=== PATIENT | male | born 1950 | race Caucasian/White ===

== ENCOUNTER 2025-02-09 14:58 | Outpatient (CLI) | payer MEDICARE, SELFPAY ==
--- NOTE | ~2025-02-09 | XR_ITS ---
Left Hand Technique: PA, oblique, and lateral views were obtained. Clinical History: Pain Findings: There is probable subacute fracture of the proximal fifth metacarpal shaft with mild displa cement probable early callus formation. Joint spaces are preserved. Soft tissues are unremarkable. Impression: Fracture of the proximal fifth metacarpal shaft, as detailed above, likely subacute. Reviewed, dictated and finalized at location . Impression: Fracture of the proximal fifth metacarpal shaft, as detailed above, likely suba cute.
--- OUTSIDE RECORDS SUMMARY | 2025-02-09 15:11 | XMS_ITS | Data Portability ---
Author Organization [facility] Address [address] [place] [address] Care Team Providers Care Information Systems Analyst Name Role Phone AGGIE ROBERTO Primary Care Provider [phone] AGGIE MAZARIEGOS Neurologist RAMON RODRIGUEZ Urologist [phone] Assessment Encounter Date Assessment Date Assessment LastModified by Organization Details LastModified Time 12/19/2023 12/19/2023 Neurology he is seeing them before diabetes hypertension hyperlipidemia and GERD have been discussed. Old records. Continue current therapy. Follow-up 4 months. All questions answered. [email or web address] Not available 12/19/2023 21:03:44 04/15/2024 04/15/2024 chronic venous stasis changes legs we will have overweight healthy instructions given blood work ordered diagnosis discussed he will follow up with me in 4 months blood pressure is up today he says at home it is fine so he will monitor bring those numbers in refuses immunizations he gets diabetic eye exam Not available 04/15/2024 22:51:42 10/14/2024 10/14/2024 healthy lifestyl e care instructions Prevnar 20 Cologuard he needs diabetic foot exam also needs blood work for evaluation biochemically of disease processes and medications follow up 4 months [email or web address] Not available 10/18/2024 21:12:31 02/09/2025 02/09/2025 X-ray of the lef t wrist his diagnosis have been discussed in the medicines to treat him healthy lifestyle care instructions I will see him back in 4 months blood work has been ordered for biochemical management of disease processes and medications his blood pressure is evaluated today and he states that he is just irritated because he had to fill out a new patient paperwork again and he says that at home that it is doing fine and we have checked his machine before it and it does agree with our office findings he will continue to monitor 3 days a week at home and if it is above 140 on the systolic and 86 on the diastolic he knows to contact the office Not available 02/09/2025 14:37:19 Plan of Treatment Reminders Order Date Submit Date Provider Last Modified By Organization Details Last Modified Time Details Appointments ANY 15 2024 01:00P Janina Roberto MD Not available Not available Not available ANY 15 2024 09:15A Janina Roberto MD Not available Not available Not available Lab HbA1c (hemoglob in A1c), blood 2024 025 [email or web address] [facility], [address] [place] [address], [facility], [place], [address], 02/09/2025 16:09:46 lipid panel, serum 2024 025 [email or web address] [facility], [address] [place] [address], [facility], [place], [address], 02/09/2025 16:09:46 CMP, serum or plasma 2024 025 [email or web address] [facility], [address] [place] [address], [facility], [place], [address], 02/09/2025 16:09:46 CBC w/ auto diff 2024 025 [email or web address] [facility], [address] [place] [address], [facility], [place], [address], 02/09/2025 16:09:46 HbA1c (hemoglob in A1c), blood 2024 025 JOE [facility], [address] [facility], [facility], [place], [address], 10/15/2024 11:14:43 albumin/c reatinine , mass ratio, urine 2024 025 JOE [facility], [address] [facility], [address], [place], [address], 10/15/2024 11:14:39 noninvasi ve colorecta l cancer DNA + occult blood screening , QL, stool 2024 025 [facility] (Cologuard Orders Only), [address], [address], [place], [address], 12/08/2024 19:25:03 CMP, serum or plasma 2024 025 JOE [facility], [address] [facility], [address], [place], [address], 10/15/2024 11:14:42 CBC w/ auto diff 2024 025 JOE [facility], [address] [facility], [address], [place], [address], 10/15/2024 11:14:44 lipid panel, serum 2024 025 JOE [facility], [address] [facility], [address], [place], [address], 10/15/2024 11:14:41 PSA, total, serum or plasma 2023 024 JOE [facility], [address] [facility], [address], [place], [address], 04/16/2024 13:22:51 HbA1c (hemoglob in A1c), blood 2023 024 JOE [facility], [address], [address], [place], [address], 04/16/2024 13:22:50 lipid panel, serum 2023 024 JOE [facility], [address], [address], [place], [address], 04/16/2024 13:22:48 CMP, serum or plasma 2023 024 JOE [facility], [address] [facility], [facility], [place], [address], 04/16/2024 13:22:49 CBC w/ auto diff 2023 024 [facility], [address] [facility], [facility], [place], [address], 04/16/2024 13:22:50 HbA1c (hemoglob in A1c), blood 2023 024 [employer] [facility], [address], [place], [address], 01/13/2024 23:01:09 lipid panel, serum 2023 024 [employer] [facility], [address], [place], [address], 01/13/2024 23:01:07 CMP, serum or plasma 2023 024 [employer] [facility], [address], [place], [address], 01/13/2024 23:01:08 CBC w/ auto diff 2023 024 [employer] [facility], [address], [place], [address], 01/13/2024 23:01:09 Referral podiatris t referral 2024 025 JOE Torres DPM, [address] [facility], [address], [place], [address], 11/30/2024 10:23:26 Procedures None recorded. Surgeries None recorded. Imaging XR, hand [address] [facility], [address], [place], [address], 02/09/2025 16:09:46 Medication Orders None recorded. Patient TargetsNo targets recorded. Patient Instructions Encounter Date Encounter Id Patient Instructions Last Modified By Organization Details Last Modified Time 04/15/2024 [id number] A healthy lifestyle: care instructions [email or web address] Not available 04/15/2024 16:09:59 10/14/2024 [id number] A healthy lifestyle: care instructions [email or web address] Not available 10/14/2024 15:20:00 Medicare Wellnes s Preventive Checklist [email or web address] Not available 10/14/2024 15:20:00 02/09/2025 [id number] A healthy lifestyle: care instructions [email or web address] Not available 02/09/2025 16:09:46 Reason for Referral [employer] Technician Referral for Type 2 diabetes mellitus Referring Physician: Aggie Roberto, Internal Medicine, Encounter Date: 10/14/2024 Results Created Date Observation Date Name Description Value Unit Range Abnormal Flag Note LastModifiedBy Organization Detail LastModifiedTime 01/13/20 24 01/13/2024 LIPID PANEL , STAND JT cholesterol, total 141 mg/dL <200 normal Not Available [address], [address], 01/13/2024 23:01:07 01/13/20 24 01/13/2024 LIPID PANEL , STAND JT HDL cholesterol 69 mg/dL > or = 40 normal Not Available [address] [place], [address], 01/13/2024 23:01:07 01/13/20 24 01/13/2024 LIPID PANEL , STAND JT triglyceride s 76 mg/dL <150 normal Not Available [facility] [address] [address] [place], [address], 01/13/2024 23:01:07 01/13/20 24 01/13/2024 LIPID PANEL , STAND JT LDL-choleste rol 56 mg/dL _(maggie c) normal Refer ence range : <100 Fabi able range <100 mg/dL for prima ry preve ntion ; <70 mg/dL for patie nts with CHD or diabe tic patie nts with > or = 2 CHD risk facto rs. LDL-C is now calcu lated using the Lore n-Hop kins calcu titus n, which is a valid ated novel anahyo ismael clemente acy than the Fried donna equat ion in the estim ation of LDL-C . Lore duckworth SS et al. PETR. 2013; 310(1 9): 2061- 2068 (http ://ed ucati on.Pensqr. com/f aq/FA Q164) Not Available [facility] [address] [address], [place], [address], 01/13/2024 23:01:01/13/20 24 01/13/2024 LIPID PANEL , STAND JT chol/HDLC ratio 2.0 (calc ) <5.0 normal Not Available [facility] [address] [address], [place], [address], 01/13/2024 23:01:01/13/20 24 01/13/2024 LIPID PANEL , STAND JT non HDL cholesterol 72 mg/dL _(maggie c) <130 normal For patie nts with diabe oleg plus 1 major ASCVD risk facto r, treat ing to a non-H DL-C goal of <100 mg/dL (LDL- C of <70 mg/dL ) is consi dered a thera peuti c optio n. Not Available [facility] [address] [address] [address] , [place], [address], 01/13/2024 23:01:01/13/20 24 01/13/2024 COMPR EHENS CHAPIS METAB OLIC PANEL glucose 125 mg/dL 65-99 high Fasti ng refer ence inter chago For someo ne witho ut known diabe oleg, a gluco se value betwe en 100 and 125 mg/dL is consi stent with predi abete s and shoul d be confi rmed with a follo w-up test. Not Available [facility] [address] [address] [place], [address], 01/13/2024 23:01:08 01/13/20 24 01/13/2024 COMPR EHENS CHAPIS METAB OLIC PANEL urea nitrogen (BUN) 18 mg/dL 7-25 normal Not Available [address], [address], 01/13/2024 23:01:08 01/13/20 24 01/13/2024 COMPR EHENS CHAPIS METAB OLIC PANEL creatinine 0.88 mg/dL 0.70-1 .28 normal Not Available [address], [address], 01/13/2024 23:01:08 01/13/20 24 01/13/2024 COMPR EHENS CHAPIS METAB OLIC PANEL eGFR 91 mL/mi n/1.7 3m2 > or = 60 normal Not Available [address], [address], 01/13/2024 23:01:08 01/13/20 24 01/13/2024 COMPR EHENS CHAPIS METAB OLIC PANEL BUN/creatini ne ratio SEE NOTE: (calc ) 6-22 Not Repor darnell: BUN and Creat inine are withi n refer ence range . Not Available [address], [address], 01/13/2024 23:01:08 01/13/20 24 01/13/2024 COMPR EHENS CHAPIS METAB OLIC PANEL sodium 139 mmol/ L 135-14 6 normal Not Available [address], [address], 01/13/2024 23:01:08 01/13/20 24 01/13/2024 COMPR EHENS CHAPIS METAB OLIC PANEL potassium 4.7 mmol/ L 3.5-5. 3 normal Not Available [address], [address], 01/13/2024 23:01:08 01/13/20 24 01/13/2024 COMPR EHENS CHAPIS METAB OLIC PANEL chloride 103 mmol/ L 98-110 normal Not Available [address], [address], 01/13/2024 23:01:08 01/13/20 24 01/13/2024 COMPR EHENS CHAPIS METAB OLIC PANEL carbon dioxide 28 mmol/ L 20-32 normal Not Available [address], [address], 01/13/2024 23:01:08 01/13/20 24 01/13/2024 COMPR EHENS CHAPIS METAB OLIC PANEL calcium 9.6 mg/dL 8.6-10 .3 normal Not Available [address], [address], 01/13/2024 23:01:08 01/13/20 24 01/13/2024 COMPR EHENS CHAPIS METAB OLIC PANEL protein, total 7.0 g/dL 6.1-8. 1 normal Not Available [address], [address], 01/13/2024 23:01:08 01/13/20 24 01/13/2024 COMPR EHENS CHAPIS METAB OLIC PANEL albumin 4.3 g/dL 3.6-5. 1 normal Not Available [address], [address], 01/13/2024 23:01:08 01/13/20 24 01/13/2024 COMPR EHENS CHAPIS METAB OLIC PANEL globulin 2.7 g/dL_ (calc ) 1.9-3. 7 normal Not Available [address], [address], 01/13/2024 23:01:08 01/13/20 24 01/13/2024 COMPR EHENS CHAPIS METAB OLIC PANEL albumin/glob ulin ratio 1.6 (calc ) 1.0-2. 5 normal Not Available [address], [address], 01/13/2024 23:01:08 01/13/20 24 01/13/2024 COMPR EHENS CHAPIS METAB OLIC PANEL bilirubin, total 0.6 mg/dL 0.2-1. 2 normal Not Available [address], [address], 01/13/2024 23:01:08 01/13/20 24 01/13/2024 COMPR EHENS CHAPIS METAB OLIC PANEL alkaline phosphatase 49 U/L 35-144 normal Not Available [facility] [employer] [address], [address], 01/13/2024 23:01:08 01/13/20 24 01/13/2024 COMPR EHENS CHAPIS METAB OLIC PANEL AST 20 U/L 10-35 normal Not Available [address], [address], 01/13/2024 23:01:08 01/13/20 24 01/13/2024 COMPR EHENS CHAPIS METAB OLIC PANEL ALT 20 U/L 9-46 normal Not Available [address], [address], 01/13/2024 23:01:08 01/13/20 24 01/13/2024 CBC (INCL UDES DIFF/ PLT) white blood cell count 5.4 thous and/u L 3.8-10 .8 normal Not Available [address], [address], 01/13/2024 23:01:09 01/13/20 24 01/13/2024 CBC (INCL UDES DIFF/ PLT) red blood cell count 3.93 deb on/uL 4.20-5 .80 low Not Available [address], [address], 01/13/2024 23:01:09 01/13/20 24 01/13/2024 CBC (INCL UDES DIFF/ PLT) hemoglobin 12.7 g/dL 13.2-1 7.1 low Not Available [address], [address], 01/13/2024 23:01:01/13/20 24 01/13/2024 CBC (INCL UDES DIFF/ PLT) hematocrit 38.5 % 38.5-5 0.0 normal Not Available [address], [address], 01/13/2024 23:01:01/13/20 24 01/13/2024 CBC (INCL UDES DIFF/ PLT) MCV 98.0 fL 80.0-1 00.0 normal Not Available [address], [address], 01/13/2024 23:01:01/13/20 24 01/13/2024 CBC (INCL UDES DIFF/ PLT) MCH 32.3 pg 27.0-3 3.0 normal Not Available [address], [address], 01/13/2024 23:01:01/13/20 24 01/13/2024 CBC (INCL UDES DIFF/ PLT) MCHC 33.0 g/dL 32.0-3 6.0 normal Not Available [address], [address], 01/13/2024 23:01:01/13/20 24 01/13/2024 CBC (INCL UDES DIFF/ PLT) RDW 12.5 % 11.0-1 5.0 normal Not Available [address], [address], 01/13/2024 23:01:01/13/20 24 01/13/2024 CBC (INCL UDES DIFF/ PLT) platelet count 209 thous and/u L 140-40 0 normal Not Available [address] [place], [address], 01/13/2024 23:01:09 01/13/20 24 01/13/2024 CBC (INCL UDES DIFF/ PLT) MPV 11.1 fL 7.5-12 .5 normal Not Available [address], [address], 01/13/2024 23:01:01/13/20 24 01/13/2024 CBC (INCL UDES DIFF/ PLT) absolute neutrophils 3105 cells /uL 1500-7 800 normal Not Available [facility] [address], [address], 01/13/2024 23:01:01/13/20 24 01/13/2024 CBC (INCL UDES DIFF/ PLT) absolute lymphocytes 1501 cells /uL 850-39 00 normal Not Available [address], [address], 01/13/2024 23:01:01/13/20 24 01/13/2024 CBC (INCL UDES DIFF/ PLT) absolute monocytes 664 cells /uL 200-95 0 normal Not Available [address], [address], 01/13/2024 23:01:01/13/20 24 01/13/2024 CBC (INCL UDES DIFF/ PLT) absolute eosinophils 97 cells /uL 15-500 normal Not Available [address], [address], 01/13/2024 23:01:01/13/20 24 01/13/2024 CBC (INCL UDES DIFF/ PLT) absolute basophils 32 cells /uL 0-200 normal Not Available [address], [address], 01/13/2024 23:01:01/13/20 24 01/13/2024 CBC (INCL UDES DIFF/ PLT) neutrophils 57.5 % normal Not Available [facility] [address] [place], [address], 01/13/2024 23:01:09 01/13/20 24 01/13/2024 CBC (INCL UDES DIFF/ PLT) lymphocytes 27.8 % normal Not Available [facility] [address], [address], 01/13/2024 23:01:01/13/20 24 01/13/2024 CBC (INCL UDES DIFF/ PLT) monocytes 12.3 % normal Not Available [facility] [address], [address], 01/13/2024 23:01:01/13/20 24 01/13/2024 CBC (INCL UDES DIFF/ PLT) eosinophils 1.8 % normal Not Available [facility] [address], [address], 01/13/2024 23:01:09 01/13/20 24 01/13/2024 CBC (INCL UDES DIFF/ PLT) basophils 0.6 % normal Not Available [facility] [address], [address], 01/13/2024 23:01:09 01/13/20 24 01/13/2024 HEMOG LOBIN A1C hemoglobin A1C 7.0 %_of_ total _HGB <5.7 high For someo ne witho ut known diabe oleg, a hemog lobin A1c value of 6.5% or great er indic ates that they may have diabe oleg and this shoul d be confi rmed with a follo w-up test. For someo ne with known diabe oleg, a value <7% indic ates that their diabe oleg is well contr olled and a value great er than or equal to 7% indic ates subop timal contr ol. A1c targe ts shoul d be indiv idual ized based on durat ion of diabe oleg, age, comor bid condi tions , and other consi derat ions. Curre ntly, no conse nsus exist s camron sexton use of hemog lobin A1c for diagn osis of diabe oleg for child lee. This test was perfo rmed on the Marya lopez c503 platf orm. Effec tive , a buck ko in test platf orms from the [facility] to the Marya lopez c503 may have shift ed HbA1c resul ts coleman red to histo rical resul ts. Based on labor atory valid ation testi ng condu cted at [facility] , the Marya platf orm relat cahpis to the [facility] platf orm had an avera ge incre ase in HbA1c value of < or = 0.3%. This diffe rence is withi n accep darnell varia bilit y estab lishe d by the Natio nal [facility]co hemog lobin Stand ardiz ation Progr am. Note that not all indiv idual s will have had a shift in their resul ts and direc t coleman rison s betwe en histo rical and curre nt resul ts for testi ng condu cted on diffe rent platf orms is not recom mariaelena d. Not Available [facility] [address] [place], [address], 01/13/2024 23:01:09 04/15/20 24 04/16/2024 LIPID PANEL cholesterol, total 131 mg/dL 100-19 9 Not Available [facility] ([facility]) [address] [place], [address], 04/16/2024 13:22:48 04/15/20 24 04/16/2024 LIPID PANEL triglyceride s 180 mg/dL 0-149 above high normal Not Available [facility] ([facility]) [address] [place], [address], 04/16/2024 13:22:48 04/15/20 24 04/16/2024 LIPID PANEL HDL cholesterol 59 mg/dL >39 Not Available [facility] ([facility]) [address] [place], [address], 04/16/2024 13:22:48 04/15/20 24 04/16/2024 LIPID PANEL VLDL cholesterol maggie 29 mg/dL 5-40 Not Available [facility] ([facility]) [address] [facility], [place], [address], 04/16/2024 13:22:48 04/15/20 24 04/16/2024 LIPID PANEL LDL chol calc ([facility]) 43 mg/dL 0-99 Not Available [facility] ([facility]) [address] [facility], [place], [address], 04/16/2024 13:22:48 04/15/20 24 04/16/2024 COMP. METAB OLIC PANEL (14) glucose 106 mg/dL 70-99 above high normal Not Available [facility] ([facility]) [address] [place], [address], 04/16/2024 13:22:49 04/15/20 24 04/16/2024 COMP. METAB OLIC PANEL (14) BUN 14 mg/dL 8-27 Not Available [facility] ([facility]) [address] [place], [address], 04/16/2024 13:22:49 04/15/20 24 04/16/2024 COMP. METAB OLIC PANEL (14) creatinine 0.80 mg/dL 0.76-1 .27 Not Available [facility] ([facility]) [address] [place], [address], 04/16/2024 13:22:49 04/15/20 24 04/16/2024 COMP. METAB OLIC PANEL (14) eGFR 94 mL/mi n/1.7 3 >59 Not Available [facility] ([facility]) [address] [place], [address], 04/16/2024 13:22:49 04/15/20 24 04/16/2024 COMP. METAB OLIC PANEL (14) BUN/creatini ne ratio 18 10-24 Not Available [facility] ([facility]) [address] [facility] [place], [address], 04/16/2024 13:22:49 04/15/20 24 04/16/2024 COMP. METAB OLIC PANEL (14) sodium 140 mmol/ L 134-14 4 Not Available [facility] ([facility]) [address] [facility] [place], [address], 04/16/2024 13:22:49 04/15/20 24 04/16/2024 COMP. METAB OLIC PANEL (14) potassium 4.5 mmol/ L 3.5-5. 2 Not Available [facility] ([facility]) [address] [facility] [place], [address], 04/16/2024 13:22:49 04/15/20 24 04/16/2024 COMP. METAB OLIC PANEL (14) chloride 102 mmol/ L 96-106 Not Available [facility] ([facility]) [address] [facility] [place], [address], 04/16/2024 13:22:49 04/15/20 24 04/16/2024 COMP. METAB OLIC PANEL (14) carbon dioxide, total 25 mmol/ L 20-29 Not Available [facility] ([facility]) [address] [facility] [place], [address], 04/16/2024 13:22:49 04/15/20 24 04/16/2024 COMP. METAB OLIC PANEL (14) calcium 9.5 mg/dL 8.6-10 .2 Not Available [facility] ([facility]) [address] [facility] [place], [address], 04/16/2024 13:22:49 04/15/20 24 04/16/2024 COMP. METAB OLIC PANEL (14) protein, total 6.8 g/dL 6.0-8. 5 Not Available [facility] ([facility]) [address] [facility], [place], [address], 04/16/2024 13:22:49 04/15/20 24 04/16/2024 COMP. METAB OLIC PANEL (14) albumin 4.3 g/dL 3.8-4. 8 Not Available [facility] ([facility]) [address] [facility], [place], [address], 04/16/2024 13:22:49 04/15/20 24 04/16/2024 COMP. METAB OLIC PANEL (14) globulin, total 2.5 g/dL 1.5-4. 5 Not Available [facility] ([facility]) [address] [facility], [place], [address], 04/16/2024 13:22:49 04/15/20 24 04/16/2024 COMP. METAB OLIC PANEL (14) bilirubin, total 0.6 mg/dL 0.0-1. 2 Not Available [facility] ([facility]) [address] [facility], [place], [address], 04/16/2024 13:22:49 04/15/20 24 04/16/2024 COMP. METAB OLIC PANEL (14) alkaline phosphatase 56 IU/L 44-121 Not Available [facility] ([facility]) [address] [facility], [place], [address], 04/16/2024 13:22:49 04/15/20 24 04/16/2024 COMP. METAB OLIC PANEL (14) AST (SGOT) 22 IU/L 0-40 Not Available [facility] ([facility]) [address] [facility], [place], [address], 04/16/2024 13:22:49 04/15/20 24 04/16/2024 COMP. METAB OLIC PANEL (14) ALT (SGPT) 20 IU/L 0-44 Not Available [facility] ([facility]) [address] [facility], [place], [address], 04/16/2024 13:22:49 04/15/20 24 04/16/2024 HEMOG LOBIN A1C hemoglobin A1C 6.4 % 4.8-5. 6 above high normal Predi abete s: 5.7 - 6.4 Diabe oleg: >6.4 Glyce juarez contr ol for adult s with diabe oleg: <7.0 Not Available [facility] ([facility]) [address] [facility], [place], [address], 04/16/2024 13:22:50 04/15/20 24 04/16/2024 CBC WITH DIFFE RENTI AL/PL ATELE T WBC 6.3 x10e3 /uL 3.4-10 .8 Not Available [facility] ([facility]) [address] [place], [address], 04/16/2024 13:22:50 04/15/20 24 04/16/2024 CBC WITH DIFFE RENTI AL/PL ATELE T RBC 3.77 x10e6 /uL 4.14-5 .80 below low normal Not Available [facility] ([facility]) [address] [place], [address], 04/16/2024 13:22:50 04/15/20 24 04/16/2024 CBC WITH DIFFE RENTI AL/PL ATELE T hemoglobin 11.7 g/dL 13.0-1 7.7 below low normal Not Available [facility] ([facility]) [address] [place], [address], 04/16/2024 13:22:50 04/15/20 24 04/16/2024 CBC WITH DIFFE RENTI AL/PL ATELE T hematocrit 36.7 % 37.5-5 1.0 below low normal Not Available [facility] ([facility]) [address] [place], [address], 04/16/2024 13:22:50 04/15/20 24 04/16/2024 CBC WITH DIFFE RENTI AL/PL ATELE T MCV 97 fL 79-97 Not Available [facility] ([facility]) [address] [facility], [place], [address], 04/16/2024 13:22:50 04/15/20 24 04/16/2024 CBC WITH DIFFE RENTI AL/PL ATELE T MCH 31.0 pg 26.6-3 3.0 Not Available [facility] ([facility]) [address] [facility], [place], [address], 04/16/2024 13:22:50 04/15/20 24 04/16/2024 CBC WITH DIFFE RENTI AL/PL ATELE T MCHC 31.9 g/dL 31.5-3 5.7 Not Available [facility] ([facility]) [address] [facility], [place], [address], 04/16/2024 13:22:50 04/15/20 24 04/16/2024 CBC WITH DIFFE RENTI AL/PL ATELE T RDW 12.4 % 11.6-1 5.4 Not Available [facility] ([facility]) [address] [facility], [place], [address], 04/16/2024 13:22:50 04/15/20 24 04/16/2024 CBC WITH DIFFE RENTI AL/PL ATELE T platelets 202 x10e3 /uL 150-45 0 Not Available [facility] ([facility]) [address] [facility], [place], [address], 04/16/2024 13:22:50 04/15/20 24 04/16/2024 CBC WITH DIFFE RENTI AL/PL ATELE T neutrophils 56 % notest ab. Not Available [facility] ([facility]) [address] [facility], [place], [address], 04/16/2024 13:22:50 04/15/20 24 04/16/2024 CBC WITH DIFFE RENTI AL/PL ATELE T lymphs 28 % notest ab. Not Available [facility] ([facility]) [address] [facility], [place], [address], 04/16/2024 13:22:50 04/15/20 24 04/16/2024 CBC WITH DIFFE RENTI AL/PL ATELE T monocytes 13 % notest ab. Not Available [facility] ([facility]) [address] [facility], [place], [address], 04/16/2024 13:22:50 04/15/20 24 04/16/2024 CBC WITH DIFFE RENTI AL/PL ATELE T eos 2 % notest ab. Not Available [facility] ([facility]) [address] [facility], [place], [address], 04/16/2024 13:22:50 04/15/20 24 04/16/2024 CBC WITH DIFFE RENTI AL/PL ATELE T basos 1 % notest ab. Not Available [facility] ([facility]) [address] [facility], [place], [address], 04/16/2024 13:22:50 04/15/20 24 04/16/2024 CBC WITH DIFFE RENTI AL/PL ATELE T neutrophils (absolute) 3.5 x10e3 /uL 1.4-7. 0 Not Available [facility] ([facility]) [address] [facility], [place], [address], 04/16/2024 13:22:50 04/15/20 24 04/16/2024 CBC WITH DIFFE RENTI AL/PL ATELE T lymphs (absolute) 1.8 x10e3 /uL 0.7-3. 1 Not Available [facility] ([facility]) [address] [facility], [place], [address], 04/16/2024 13:22:50 04/15/20 24 04/16/2024 CBC WITH DIFFE RENTI AL/PL ATELE T monocytes(ab solute) 0.8 x10e3 /uL 0.1-0. 9 Not Available [facility] ([facility]) [address] [facility], [place], [address], 04/16/2024 13:22:50 04/15/20 24 04/16/2024 CBC WITH DIFFE RENTI AL/PL ATELE T eos (absolute) 0.1 x10e3 /uL 0.0-0. 4 Not Available [facility] ([facility]) [address] [place], [address], 04/16/2024 13:22:50 04/15/20 24 04/16/2024 CBC WITH DIFFE RENTI AL/PL ATELE T baso (absolute) 0.0 x10e3 /uL 0.0-0. 2 Not Available [facility] ([facility]) [address] [facility], [place], [address], 04/16/2024 13:22:50 04/15/20 24 04/16/2024 CBC WITH DIFFE RENTI AL/PL ATELE T immature granulocytes 0 % notest ab. Not Available [facility] ([facility]) [address] [facility], [place], [address], 04/16/2024 13:22:50 04/15/20 24 04/16/2024 CBC WITH DIFFE RENTI AL/PL ATELE T immature grans (abs) 0.0 x10e3 /uL 0.0-0. 1 Not Available [facility] ([facility]) [address] [place], [address], 04/16/2024 13:22:50 04/15/20 24 04/16/2024 PROST ATE-S PECIF IC AG prostate specific Ag 3.3 NG/mL 0.0-4. 0 Marya ECLIA metho dolog y. Accor ding to the Ameri can Urolo gical Assoc iatio n, Serum PSA shoul d decre ase and remai n at undet ectab le level s after radic al prost atect stephany. The AUA defin es bioch emica l recur rence as an initi al PSA value 0.2 ng/mL or great er follo wed by a subse quent confi rmato ry PSA value 0.2 ng/mL or great er. Value s obtai rigoberto with diffe rent assay metho ds or kits canno t be used inter jane eably . Resul ts canno t be inter prete d as absol [place] tribe evide nce of the prese nce or absen ce of fiona teran se. Not Available [facility] ([facility]) [address] [facility], [place], [address], 04/16/2024 13:22:51 10/14/19 25 10/15/2024 ALBUM IN/CR EATIN INE RATIO ,URIN E creatinine, urine 69.2 mg/dL notest ab. Not Available [facility] ([facility]) [address] [facility], [place], [address], 10/15/2024 11:14:39 10/14/19 25 10/15/2024 ALBUM IN/CR EATIN INE RATIO ,URIN E albumin, urine 3.4 ug/mL notest ab. Not Available [facility] ([facility]) [address] [facility], [place], [address], 10/15/2024 11:14:39 10/14/19 25 10/15/2024 ALBUM IN/CR EATIN INE RATIO ,URIN E alb/creat ratio 5 mg/g_ creat 0-29 Neha l: 0 - 29 Moder ately incre ased: 30 - 300 Sever otis incre ased: >300 Not Available [facility] ([facility]) [address] [facility], [place], [address], 10/15/2024 11:14:39 10/14/19 25 10/15/2024 LIPID PANEL cholesterol, total 157 mg/dL 100-19 9 Not Available [facility] ([facility]) [address] [facility], [place], [address], 10/15/2024 11:14:41 10/14/19 25 10/15/2024 LIPID PANEL triglyceride s 130 mg/dL 0-149 Not Available [facility] ([facility]) [address] [place], [address], 10/15/2024 11:14:41 10/14/19 25 10/15/2024 LIPID PANEL HDL cholesterol 62 mg/dL >39 Not Available [facility] ([facility]) [address] [place], [address], 10/15/2024 11:14:41 10/14/19 25 10/15/2024 LIPID PANEL VLDL cholesterol maggie 23 mg/dL 5-40 Not Available [facility] ([facility]) [address] [place], [address], 10/15/2024 11:14:41 10/14/19 25 10/15/2024 LIPID PANEL LDL chol calc ([facility]) 72 mg/dL 0-99 Not Available [facility] ([facility]) [address] [place], [address], 10/15/2024 11:14:41 10/14/19 25 10/15/2024 COMP. METAB OLIC PANEL (14) glucose 82 mg/dL 70-99 Not Available [facility] ([facility]) [address] [place], [address], 10/15/2024 11:14:42 10/14/19 25 10/15/2024 COMP. METAB OLIC PANEL (14) BUN 17 mg/dL 8-27 Not Available [facility] ([facility]) [address] [place], [address], 10/15/2024 11:14:42 10/14/19 25 10/15/2024 COMP. METAB OLIC PANEL (14) creatinine 0.87 mg/dL 0.76-1 .27 Not Available [facility] ([facility]) [address] [place], [address], 10/15/2024 11:14:42 10/14/19 25 10/15/2024 COMP. METAB OLIC PANEL (14) eGFR 91 mL/mi n/1.7 3 >59 Not Available [facility] ([facility]) [address] [facility], [place], [address], 10/15/2024 11:14:42 10/14/19 25 10/15/2024 COMP. METAB OLIC PANEL (14) BUN/creatini ne ratio 20 10-24 Not Available [facility] ([facility]) [address] [facility], [place], [address], 10/15/2024 11:14:42 10/14/19 25 10/15/2024 COMP. METAB OLIC PANEL (14) sodium 138 mmol/ L 134-14 4 Not Available [facility] ([facility]) [address] [facility], [place], [address], 10/15/2024 11:14:42 10/14/19 25 10/15/2024 COMP. METAB OLIC PANEL (14) potassium 4.8 mmol/ L 3.5-5. 2 Not Available [facility] ([facility]) [address] [facility], [place], [address], 10/15/2024 11:14:42 10/14/19 25 10/15/2024 COMP. METAB OLIC PANEL (14) chloride 100 mmol/ L 96-106 Not Available [facility] ([facility]) [address], [place], [address], 10/15/2024 11:14:42 10/14/19 25 10/15/2024 COMP. METAB OLIC PANEL (14) carbon dioxide, total 27 mmol/ L 20-29 Not Available [facility] ([facility]) [address] [facility], [place], [address], 10/15/2024 11:14:42 10/14/19 25 10/15/2024 COMP. METAB OLIC PANEL (14) calcium 9.7 mg/dL 8.6-10 .2 Not Available [facility] ([facility]) [address] [place], [address], 10/15/2024 11:14:42 10/14/19 25 10/15/2024 COMP. METAB OLIC PANEL (14) protein, total 7.0 g/dL 6.0-8. 5 Not Available [facility] ([facility]) [address] [place], [address], 10/15/2024 11:14:42 10/14/19 25 10/15/2024 COMP. METAB OLIC PANEL (14) albumin 4.4 g/dL 3.8-4. 8 Not Available [facility] ([facility]) [address] [place], [address], 10/15/2024 11:14:42 10/14/19 25 10/15/2024 COMP. METAB OLIC PANEL (14) globulin, total 2.6 g/dL 1.5-4. 5 Not Available [facility] ([facility]) [address] [place], [address], 10/15/2024 11:14:42 10/14/19 25 10/15/2024 COMP. METAB OLIC PANEL (14) bilirubin, total 0.7 mg/dL 0.0-1. 2 Not Available [facility] ([facility]) [address] [place], [address], 10/15/2024 11:14:42 10/14/19 25 10/15/2024 COMP. METAB OLIC PANEL (14) alkaline phosphatase 58 IU/L 44-121 Not Available [facility] ([facility]) [address] [place], [address], 10/15/2024 11:14:42 10/14/19 25 10/15/2024 COMP. METAB OLIC PANEL (14) AST (SGOT) 31 IU/L 0-40 Not Available [facility] ([facility]) [address] [place], [address], 10/15/2024 11:14:42 10/14/1910/15/2024 COMP. METAB OLIC PANEL (14) ALT (SGPT) 28 IU/L 0-44 Not Available [facility] ([facility]) [address], [place], [address], 10/15/2024 11:14:42 10/14/19 25 10/15/2024 HEMOG LOBIN A1C hemoglobin A1C 7.0 % 4.8-5. 6 above high normal Predi abete s: 5.7 - 6.4 Diabe oleg: >6.4 Glyce juarez contr ol for adult s with diabe oleg: <7.0 Not Available [facility] ([facility]) [address] [place], [address], 10/15/2024 11:14:43 10/14/19 25 10/15/2024 CBC WITH DIFFE RENTI AL/PL ATELE T WBC 8.1 x10e3 /uL 3.4-10 .8 Not Available [facility] ([facility]) [address] [place], [address], 10/15/2024 11:14:44 10/14/19 25 10/15/2024 CBC WITH DIFFE RENTI AL/PL ATELE T RBC 3.80 x10e6 /uL 4.14-5 .80 below low normal Not Available [facility] ([facility]) [address] [place], [address], 10/15/2024 11:14:44 10/14/19 25 10/15/2024 CBC WITH DIFFE RENTI AL/PL ATELE T hemoglobin 12.2 g/dL 13.0-1 7.7 below low normal Not Available [facility] ([facility]) [address] [place], [address], 10/15/2024 11:14:44 10/14/19 25 10/15/2024 CBC WITH DIFFE RENTI AL/PL ATELE T hematocrit 37.8 % 37.5-5 1.0 Not Available [facility] ([facility]) [address], [place], [address], 10/15/2024 11:14:44 10/14/19 25 10/15/2024 CBC WITH DIFFE RENTI AL/PL ATELE T MCV 100 fL 79-97 above high normal Not Available [facility] ([facility]) [address] [facility], [place], [address], 10/15/2024 11:14:44 10/14/19 25 10/15/2024 CBC WITH DIFFE RENTI AL/PL ATELE T MCH 32.1 pg 26.6-3 3.0 Not Available [facility] ([facility]) [address] [facility], [place], [address], 10/15/2024 11:14:44 10/14/19 25 10/15/2024 CBC WITH DIFFE RENTI AL/PL ATELE T MCHC 32.3 g/dL 31.5-3 5.7 Not Available [facility] ([facility]) [address] [facility], [place], [address], 10/15/2024 11:14:44 10/14/19 25 10/15/2024 CBC WITH DIFFE RENTI AL/PL ATELE T RDW 12.2 % 11.6-1 5.4 Not Available [facility] ([facility]) [address] [facility], [place], [address], 10/15/2024 11:14:44 10/14/19 25 10/15/2024 CBC WITH DIFFE RENTI AL/PL ATELE T platelets 187 x10e3 /uL 150-45 0 Not Available [facility] ([facility]) [address] [place], [address], 10/15/2024 11:14:44 10/14/19 25 10/15/2024 CBC WITH DIFFE RENTI AL/PL ATELE T neutrophils 55 % notest ab. Not Available [facility] ([facility]) [address] [facility], [place], [address], 10/15/2024 11:14:44 10/14/19 25 10/15/2024 CBC WITH DIFFE RENTI AL/PL ATELE T lymphs 30 % notest ab. Not Available [facility] ([facility]) [address] [facility], [place], [address], 10/15/2024 11:14:44 10/14/19 25 10/15/2024 CBC WITH DIFFE RENTI AL/PL ATELE T monocytes 12 % notest ab. Not Available [facility] ([facility]) [address], [place], [address], 10/15/2024 11:14:44 10/14/19 25 10/15/2024 CBC WITH DIFFE RENTI AL/PL ATELE T eos 2 % notest ab. Not Available [facility] ([facility]) [address] [facility], [place], [address], 10/15/2024 11:14:44 10/14/19 25 10/15/2024 CBC WITH DIFFE RENTI AL/PL ATELE T basos 1 % notest ab. Not Available [facility] ([facility]) [address], [place], [address], 10/15/2024 11:14:44 10/14/19 25 10/15/2024 CBC WITH DIFFE RENTI AL/PL ATELE T neutrophils (absolute) 4.4 x10e3 /uL 1.4-7. 0 Not Available [facility] ([facility]) [address] [facility], [place], [address], 10/15/2024 11:14:44 10/14/19 25 10/15/2024 CBC WITH DIFFE RENTI AL/PL ATELE T lymphs (absolute) 2.4 x10e3 /uL 0.7-3. 1 Not Available [facility] ([facility]) [address] [place], [address], 10/15/2024 11:14:44 10/14/19 25 10/15/2024 CBC WITH DIFFE RENTI AL/PL ATELE T monocytes(ab solute) 1.0 x10e3 /uL 0.1-0. 9 above high normal Not Available [facility] ([facility]) [address] [facility], [place], [address], 10/15/2024 11:14:44 10/14/19 25 10/15/2024 CBC WITH DIFFE RENTI AL/PL ATELE T eos (absolute) 0.2 x10e3 /uL 0.0-0. 4 Not Available [facility] ([facility]) [address] [facility], [place], [address], 10/15/2024 11:14:44 10/14/19 25 10/15/2024 CBC WITH DIFFE RENTI AL/PL ATELE T baso (absolute) 0.1 x10e3 /uL 0.0-0. 2 Not Available [facility] ([facility]) [address] [place], [address], 10/15/2024 11:14:44 10/14/19 25 10/15/2024 CBC WITH DIFFE RENTI AL/PL ATELE T immature granulocytes 0 % notest ab. Not Available [facility] ([facility]) [address] [place], [address], 10/15/2024 11:14:44 10/14/19 25 10/15/2024 CBC WITH DIFFE RENTI AL/PL ATELE T immature grans (abs) 0.0 x10e3 /uL 0.0-0. 1 Not Available [facility] ([facility]) [address] [place], [address], 10/15/2024 11:14:44 12/02/19 25 12/02/2024 COLOG UARD cologuard result reportable NEGATI VE negati ve normal NEGAT CHAPIS TEST RESUL T. A negat chapis Colog uard resul t indic ates a low likel ihood that a color ectal cance r (CRC) or advan martha adeno ma (mary omato us polyp s with more advan martha pre-m align ant featu res) is prese nt. The chanc e that a perso n with a negat chapis Colog uard test has a color ectal cance r is less than 1 in 1500 (nega tive predi ctive value >99.9 %) or has an advan martha adeno ma is less than 5.3% (nega tive predi ctive value 94.7% ). These data are based on a prosp ectiv e cross -sect ional study of ,00 0 indiv idual s at vulcan ge risk for color ectal cance r who were scree rigoberto with both Colog uard and colon oscop y. (Samra Colmenares et al, N Engl J Med 2014; 370(1 4):12 86-12 97) The neha l value (refe rence range ) for this assay is negat chapis. COLOG UARD RE-SC REENI NG RECOM MENDA TION: Perio dic color ectal cance r scree aditya is an impor tant part of preve ntive healt hcare for asymp tomat ic indiv idual s at vulcan ge risk for color ectal cance r. Follo wing a negat chapis Colog uard resul t, the Ameri can Cance r Socie ty and U.S. Multi -Soci ety Task Force scree aditya guide lines recom mend a Colog uard re-sc reeni ng inter chago of 3 years . Refer ences : Ameri can Cance r Socie ty Guide line for Color ectal Cance r Scree aditya: https ://theodore w.can cer.o rg/ca ncer/ colon -rect al-ca ncer/ detec tion- diagn osis- stagi ng/ac s-rec ommen datio ns.ht ml.; Jose Elias DK, Mariangel d CR, Veronica venegas JK, Color ectal Cance r Scree aditya: Recom menda tions for Physi cians and Patie nts from the U.S. Multi -Soci ety Task Force on Color ectal Cance r Scree aditya Inderjitog y 2017; 112:1 016-1 030. TEST DESCR IPTIO N: [place] site algor ithmi c lien sis of stool DNA-b iojuan diego kers with hemog lobin immun oassa y. Quant itati ve value s of indiv idual bioma rkers are not repor table and are not assoc iated with [facility] idual bioma rker resul t refer ence range s. Colog uard is inten ded for color ectal cance r scree aditya of adult s of eithe r sex, 45 years or older , who are at [facility] for color ectal cance r (CRC) . Colog uard has been appro dmitriy for use by the U.S. FDA. The perfo rmanc e of Colog uard was estab lishe d in a cross secti onal study of [facility] adult s aged 50-84 . Colog uard perfo rmanc e in patie nts ages 45 to 49 years was estim ated by sub-g roup lien sis of near- age group s. Colon oscop ies perfo rmed for a posit chapis resul t may find as the most clini brady signi ficlincoln t lesio n: color ectal cance r [4.0% ], advan martha adeno ma (incl uding sessi le oj darnell polyp s great er than or equal to 1cm diame ter) [20%] or non- advan martha adeno ma [31%] ; or no color ectal neopl gracie [45%] . These estim ates are deriv ed from a prosp ectiv e cross -sect ional scree aditya study of 10,00 0 indiv idual s at [facility] risk for color ectal cance r who were scree rigoberto with both Colog uard and colon oscop y. (Impe riale T. et al, N Engl J Med 2014; 370(1 4):12 86-12 97.) Colog uard may produ ce a false negat chapis or false posit chapis resul t (no color ectal cance r or preca ncero us polyp prese nt at colon oscop y follo w up). A negat chapis Colog uard test resul t does not guara ntee the absen ce of CRC or advan martha adeno ma (pre- cance r). The curre nt Colog uard scree aditya inter chago is every 3 years . (Amer ican Cance r Socie ty and U.S. Multi -Soci ety Task Force ). Colog uard perfo rmanc e data in a 10,00 0 patie nt pivot al study using colon oscop y as the refer ence metho d can be acces sed at the follo wing locat ion: www.e xactl abs.c om/re sulneal . Addit ional descr iptio n of the Colog uard test proce ss, warni ngs and preca ution s can be found at www.c ologu jt.c om. Not Available [facility] (Cologuard Orders Only) [address], [place], [address], 12/08/2024 19:25:03 04/15/20 24 10/25/2016 colon oscop y proce dure (PROC ) No observ ation record ed. BARCODE Not Available 2023 11:49:17 Result Notes None recorded. Problems Name Problem SNOMED Code Status Onset Date Resolution Date Notes Provider Name and Address Organization Details Recorded Time Type 2 diabetes mellitus 87032555 Active 2023 Aggie Roberto MD Attn: Carl kowalski,[address] [facility], [place], [address], [facility] 4 21:03:44 Essential hypertension 90864769 Active 2023 Aggie Roberto MD Attn: Carl kowalski,[address] [facility], [place], [address], [facility] 4 21:03:46 Hyperlipidemia 06160457 Active 2023 Aggie Roberto MD Attn: Carl kowalski,[address] [facility], [place], [address], [facility] 4 21:03:50 Stasis dermatitis of lower limb due to chronic peripheral venous hypertension 188178815 Active 2023 Aggie Roberto MD Attn: Carl kowalski,[address] [facility], [place], [address], [facility] 4 21:03:51 Gastroesophage al reflux disease without esophagitis 691175814 Active 2023 Aggie Roberto MD Attn: Carl kowalski,[address] [facility], [place], [address], [facility] 4 21:03:53 Anxiety 86287788 Active 2023 Aggie Roberto MD Attn: Carl kowalski,[address] [facility], [place], [address], [facility] 4 21:03:55 Problem Notes None recorded. Procedures Surgical History None recorded. Imaging Results Imaging Date Name Status LastModified by [facility] Details LastModified Time 10/25/2016 colonoscopy procedure (PROC) completed BARCODE Information not available 04/15/2024 11:49:17 Procedure Notes None recorded. Medical Equipment None Reported. Allergies No known drug allergies Medications Name Sig Start Date Stop Date Status Note LastModified by Organization Details LastModified Time metformin 500 mg tablet TAKE 1 TABLET BY MOUTH TWICE DAILY 2024 active Not Available Not Available Not Avai lable bupropion HCl SR 150 mg tablet,12 hr sustained-r elease TAKE 1 TABLET BY MOUTH DAILY 2023 active Not Available Not Available Not Avai lable citalopram 20 mg tablet TAKE 1 TABLET BY MOUTH DAILY 2023 active Not Available Not Available Not Avai lable pantoprazol e 40 mg tablet,veronika yed release TAKE 1 TABLET BY MOUTH DAILY 2024 active Not Available Not Available Not Avai lable lisinopril 10 mg tablet TAKE 1 TABLET BY MOUTH DAILY 2024 active Not Available Not Available Not Avai lable montelukast 10 mg tablet TAKE 1 TABLET BY MOUTH DAILY 2024 active Not Available Not Available Not Avai lable rosuvastati n 10 mg tablet TAKE 1 TABLET BY MOUTH DAILY active Not Available Not Available No t Available alfuzosin ER 10 mg tablet,exte nded release 24 hr TAKE 1 TABLET BY MOUTH EVERY NIGHT AT BEDTIME active Not Available Not Available No t Available Centrum active Not Available Not Avail able Not Available Ozempic 1 mg/dose (4 mg/3 mL) subcutaneou s pen injector INJECT 1 MG EVERY WEEK BY SUBCUTANE OUS ROUTE. 10/14 completed Not Available Not Available Not Available Ozempic 2 mg/dose (8 mg/3 mL) subcutaneou s pen injector inject 2mg weekly 10/14 completed Not Available Not Available Not Available Ozempic 0.25 mg or 0.5 mg (2 mg/3 mL) subcutaneou s pen injector INJECT SUBCUTANE OUS 0.25MG ONCE A WEEK FOR 4 WEEKS 10/14 completed Not Available Not Available Not Available Vitals Date Recorded Body weight Body mass index (BMI) Body height Heart rate Oxygen saturation Oxygen saturation in Arterial blood by Pulse oximetry Body temperature Respiratory rate Systolic blood pressure Diastolic blood pressure Provider Name and Address Organization Details Last Updated DateTime 4 68465.6 5 g 26.9 kg/m2 182.88 cm 76 /min 96 % 96 % 98.3 [degF] 18 /min 160 mm[Hg] 84 mm[Hg] Tabitha Ball MA [place] - [facility] 4 14:33:27 Date Recorded Body height Body mass index (BMI) Body weight Heart rate Oxygen saturation Oxygen saturation in Arterial blood by Pulse oximetry Systolic blood pressure Diastolic blood pressure Systolic blood pressure Diastolic blood pressure Provider Name and Address Organization Details Last Updated DateTime 4 182.88 cm 27.5 kg/m2 02906.5 3 g 78 /min 98 % 98 % 150 mm[Hg] 62 mm[Hg] 150 mm[Hg] 80 mm[Hg] Esperanza Fu MA [place] - [facility] 4 14:11:37 Date Recorded Body height Body mass index (BMI) Body weight Heart rate Oxygen saturation Oxygen saturation in Arterial blood by Pulse oximetry Systolic blood pressure Diastolic blood pressure Provider Name and Address Organization Details Last Updated DateTime 182.88 cm 28.1 kg/m2 51570.4 2 g 89 /min 95 % 95 % 130 mm[Hg] 70 mm[Hg] Jessica Rosado MA [facility] 14:06:06 Date Recorded Pain severity - 0-10 verbal numeric rating [Score] - Reported Provider Name and Address Organization Details Last Updated DateTime 10/14/2024 2 Lizette Sera [facility] 10/14/2024 14:12:00 Date Recorded Body height Body mass index (BMI) Body weight Heart rate Oxygen saturation Oxygen saturation in Arterial blood by Pulse oximetry Systolic blood pressure Diastolic blood pressure Provider Name and Address Organization Details Last Updated DateTime 182.88 cm 26.9 kg/m2 11812.2 9 g 82 /min 97 % 97 % 160 mm[Hg] 82 mm[Hg] Jessicadeborah Rosado [facility] 14:06:32 Social History Question Answer Notes LastModified by Status Work Ltdat ion Details LastModified Time Tobacco Smoking Status Former Smoker quit 15 years ago Lizette Sera [facility] 10/14/2024 14:14:21 Do You Have An Advance Directive? Yes Information not available 10/14/2024 What Is Your Level Of Alcohol Consumption? Occasional Beer Information not available 10/14/2024 Are You Blind Or Do You Have Difficulty Seeing? No Information not available 12/19/2023 What Is Your Level Of Caffeine Consumption? Moderate Couple Cups Of Coffee Daily Information not available 10/14/2024 In The 14 Days Before Symptom Onset, Have You Had Close Contact With A Laboratory-confir med COVID-19 While That Case Was Ill? No Information not available 10/14/2024 In The 14 Days Before Symptom Onset, Have You Had Close Contact With A Person Who Is Under Investigation For COVID-19 While That Person Was Ill? No Information not available 10/14/2024 Have You Been To An Area Known To Be High Risk For COVID-19? No Information not available 10/14/2024 Are You Currently Employed? No Retired Information not available 10/14/2024 Are You Deaf Or Do You Have Serious Difficulty Hearing? Yes Has Hearing Aid - Doesn't Always Wear Information not available 10/14/2024 What Type Of Diet Are You Following? REGULAR Information not available 12/19/2023 In The Past 7 Days, How Many Days Did You Exercise? 0 Information not available 10/14/2024 In The Past 7 Days, How Much Pain Have You [place]? Some Information not available 10/14/2024 In General, Would You Say You Health Is: Very Good Information not available 10/14/2024 How Would You Describe The Condition Of Your Mouth And Teeth- Including False Teeth Or Dentures? Very Good Information not available 10/14/2024 Each Night, How Many Hours Of Sleep Do You Get? 6 Information no t available 10/14/2024 Has Anyone Ever Told You That You Snore? Yes Information not available 10/14/2024 In The Past 7 Days, How Often Have You [place] Sleepy In The Daytime? Rarely Information not available 10/14/2024 # Alcohol Drinks Per Week 0 Information not available 10/14/2024 What Was The Date Of Your Most Recent Tobacco Screening? 02/09/2025 Information not available 02/09/2025 What Is Your Relationship Status? Information not available 12/19/2023 Do You Use Your Seat Belt Or Car Seat Routinely? Yes Information not available 10/14/2024 Do You Have Smoke And Carbon Monoxide Detectors In Your Home? Yes Information not available 12/19/2023 Do You Feel Stressed (tense, Restless, Nervous, Or Anxious, Or Unable To Sleep At Night)? [id number] Information not available 10/14/2024 Do You Use Any Illicit Or Recreational Drugs? No Information not available 12/19/2023 Do You Use Sunscreen Routinely? No Information not available 10/14/2024 Has Tobacco Cessation Counseling Been Provided? No Information not available 10/14/2024 Do You Or Have You Ever Used Any Other Forms Of Tobacco Or Nicotine? No Information not available 10/14/2024 Sex: Male Functional Status Question Answer Note LastModified by Organizat ion Details LastModified Time Are you able to care for yourself? Yes Information not available 12/19/2023 What is your exercise level? Occasional active Information not available 10/14/2024 Mental Status None recorded. Family History Relationship Description Onset Age of this Age Resolved Age Notes LastModified by Organization Details LastModified Time Sister Atherosclero sis [email or web address] Not available 2023 14:35:26 Sister Disorder of thyroid gland hdoverma Not available 2023 14:35:53 Unspecified Relation Diabetes mellitus hdoverma Not available 2023 14:35:38 Mother Disorder of thyroid gland hdoverma Not available 2023 14:35:49 Mother Dementia hdoverma Not available 12/19/2023 14:36:46 Medical History Condition Response Coronary Artery Disease N Other N Atrial Fibrillation N High Blood Pressure Y Depression N COPD N Blood Clots N Anxiety Disorder Y Muscle, Joint, or Bone Problems N Acid Reflux (GERD) N Cancer N Stroke N Headaches N Kidney or Bladder Problems N Have you had a mammogram in the last yea r? N Skin Problems N Asthma N Allergies N Have you had a PSA blood test in the las t year? Y Hepatitis N High Cholesterol Y Liver Disease N Thyroid Problems N GI Problems Y Anemia N Heart Attack (HI) N Diabetes Y Seizures/Epilepsy N Have you had a colonoscopy in the last 1 0 years? Y Heart Failure N Osteoporosis N Immunizations Vaccine Type Date Status Note Provider Nam e and Address Organization Details Recorded Time Influenza, high-dose, quadrivalent, PF 3 completed JANIE [place], [place] - [facility] 12/19/2023 14:21:35 COVID-19, mRNA, LNP-S, PF, 30 mcg/0.3 mL dose 2 completed [place] [facility] 12/19/2023 14:21:35 COVID-19, mRNA, LNP-S, PF, 30 mcg/0.3 mL dose 1 completed [place] [facility] 12/19/2023 14:21:35 COVID-19, mRNA, LNP-S, PF, 30 mcg/0.3 mL dose 1 [place] [facility] 12/19/2023 14:21:35 COVID-19, mRNA, LNP-S, PF, lee-sucrose, 30 mcg/0.3 mL 3 completed [place] [facility] 12/19/2023 14:21:35 Td (adult), 5 Lf tetanus toxoid, preservative free, adsorbed 3 completed [place] [facility] 12/19/2023 14:21:35 influenza, unspecified formulation 4 completed JANIE [place] [facility] 02/09/2025 09:43:21 COVID-19, mRNA, LNP-S, PF, 30 mcg/0.3 mL dose 4 completed J[place] [facility] 02/09/2025 09:43:21 RSV, recombinant, protein subunit RSVpreF, adjuvant reconstituted, 0.5 mL, PF 4 completed JAN[place] [facility] 02/09/2025 09:43:21 COVID-19, mRNA, LNP-S, PF, lee-sucrose, 30 mcg/0.3 mL 4 completed J[place] [facility] 02/09/2025 09:43:21 Influenza, high-dose, trivalent, PF 4 completed JAN[place] [facility] 02/09/2025 09:43:21 Pneumococcal conjugate PCV20, polysaccharide QVH053 conjugate, adjuvant, PF 5 completed Aggie Roberto MD Attn: [address] [place], [address], [place] [facility] 10/18/2024 21:08:33 Past Encounters Encounter ID Performer Location Encounter Start Date Encounter Closed Date Diagnosis/Indication Diagnosis SNOMED-CT Code Diagnosis ICD10 Code Diagnosis Note [id number] Aggie Roberto MD [facility] (Adult Med) [address] [place] [phone] 12/19/2023 14:11:42 12/19/2023 15:50:00 Type 2 diabetes mellitus 61302489 E11.9 Essential hypertension 47348911 I10 Hyperlipidemia 55464735 E78.5 Stasis mahi matitis of lower limb due to chronic peripheral venous hypertension 677688580 I87.399 Gastroesop hageal reflux disease without esophagitis 342776526 K21.9 Anxiety 09440316 F41.9 [id number] MD [facility] (Adult Med) [address] [place] [phone] 04/15/2024 13:46:57 04/15/2024 14:33:15 Overweight 986681226 E66.3 Type 2 zandra betes mellitus 70929516 E11.9 Essential hypertension 97041061 I10 Hyperlipidemia 34465431 E78.5 Screening for malignant neoplasm of prostate 521918421 Z12.5 Gastroesop hageal reflux disease without esophagitis 899137311 K21.9 Stasis mahi matitis of lower limb due to chronic peripheral venous hypertension 737819558 I87.399 Anxiety 46284765 F41.9 [id number] MD [facility] (Adult Med) [address] [place] [phone] 0 10/14/2024 13:48:38 10/14/2024 14:56:36 Body mass index 25-29 - overweight 089540702 Z68.28 Overweight 957723249 E66 .3 Adult [facility] examination 842353435 Z00.00 Health Risk Assessment collected and reviewed Essential hypertension 09141975 I10 Type 2 zandra betes mellitus 86672648 E11.9 Screening for malignant neoplasm of colon 426051736 Z12.11 Administra tion of pneumococcal vaccine 28300562 Z23 Anxiety 26782852 F41.9 Gastroesop hageal reflux disease without esophagitis 800039405 K21.9 Hyperlipidemia 06424962 E78.5 Stasis mahi matitis of lower limb due to chronic peripheral venous hypertension 509930797 I87.639 [id number] MD [facility] (Adult Med) [address] [place] [phone] 0 02/09/2025 13:53:03 02/09/2025 14:45:11 Overweight in adulthood with body mass index of 25 or more but less than 30 473848136 Z68.26 Overweight 920029613 E66 .3 Essential hypertension 51315814 I10 Pain of left hand 010878 0947 73017 M79.642 Type 2 zandra betes mellitus 50526449 E11.9 Hyperlipidemia 87071935 E78.5 Anxiety 21036773 F41.9 Gastroesop hageal reflux disease without esophagitis 886577035 K21.9 Stasis mahi matitis of lower limb due to chronic peripheral venous hypertension 182686006 I87.399 Health Concerns Section Related Observation LastModified by Organization Detai ls LastModified Time None Recorded Concern Status LastModified by Organization Details LastModified Time None Recorded Advance Directives Directive Y: Payers Encounter Date Sequence Insurance Name Policy Number Policy Dunham Covered Member ID Dunham Member ID Guarantor Name 12/19/2023 1 [facility] (MEDICARE REPLACEMENT/A DVANTAGE - HMO) [id number] Surendra Mitchell [id number] [facility] 04/15/2024 1 [facility] (MEDICARE REPLACEMENT/A DVANTAGE - HMO) [id number] Surendra Mitchell [id number] Surendra Stephen 10/14/2024 1 [facility] (MEDICARE REPLACEMENT/A DVANTAGE - HMO) [id number] Surendra Mitchell [id number] Surendra Gaonamons 02/09/2025 1 [facility] (MEDICARE REPLACEMENT/A DVANTAGE - HMO) [id number] Surendra Stephen [id number] Surendra Stephen Notes Date Note Type Note Provider Name and Address Organization Details Recorded Time 12/19/2023 text/html Anxiety high no SI or HI. Hypertension pressure is up a little bit no chest pain or shortness of breath. Dyslipidemia doing pretty good on red meat. States his edema legs better GERD no problems at this time is in today is noticed that he is got a little bit more involuntary movements about the lips may be a little bit more forgetful Aggie Roberto MD Attn: [employer] [place], [address], [place] [facility] 12/19/2023 21:04:35 04/15/2024 text/html diabetes no polyphagia polydipsia needs A1c. Hypertension no headache or dizziness. Hyperlipidemia diet has been good with regard to his saturated fat. GERD no esophagitis type symptoms. Stasis dermatitis he needs to wear the compression socks a little bit more it is hard for him to do in the summertime. Overweight healthy lifestyle instructions will be given Aggie Roberto MD Attn: [address] [facility], [place], [address], [facility] - [facility] 04/15/2024 22:51:59 10/14/2024 text/html MAW 2Reported bypatient.Diet and Nutrition:healthy diet Fracture Risk:no sudden unexplained fractures;history of fractures Concentration and Memory:no decreased concentrating ability; no memory lapses or loss; does not forget words Speech/Motor difficulties:no speech difficulties; no difficulty expressing formulated concepts; no difficulty with fine manipulative tasks; no difficulty writing/copying; no slowed reaction time; does not knock things over when trying to pick them up Hearing:loss of hearing: in both ears; wears hearing aids (at times) Vision:worse both distance and near(glasses) Activities of Daily Living:able to bathe with limited or no assistance; able to contol urination and bowels; able to dress with limited or no assistance; able to feed self with limited or no assistance; able to get out of chair or bed with limited or no assistance; able to groom with limited or no assistance; able to toilet with limited or no assistance Instrumental Activities of Daily Living:able to do house work with limited or no assistance; able to grocery shop with limited or no assistance; able to manage medications with limited or no assistance; able to manage money with limited or no assistance; able to prepare meals with limited or no assistance; able to use the phone with limited or no assistance Falls Risk Assessment:no frequent falls while walking; no fall in the past year; no fall since last visit; no dizziness/vertigo Home Safety:reviewed sun protection; no unsafe jada hazzards; no unsafe stairs; working smoke/CO detectors; practicing 'safer sex'; has hand bars in the bathroom/shower; good lighting in the home hypertension no headache or dizziness. Anxiety has been controlled. GERD no nausea vomiting heartburn. Hyperlipidemia trying to follow up on low-fat diet and watch his saturated fat. Stasis dermatitis of the limbs lower limbs needs to wear his venous compression stockings. Diabetes need blood work but no polyphagia no polydipsia Aggie Roberto MD Attn: [employer] , [place], [address], [facility] 10/18/2024 21:13:18 02/09/2025 text/html diabetes no polyphagia polydipsia needs A1c. Hypertension no headache or dizziness. Hyperlipidemia diet has been good with regard to his saturated fat. GERD no esophagitis type symptoms. Stasis dermatitis he needs to wear the compression socks a little bit more it is hard for him to do in the summertime. Overweight healthy lifestyle instructions will be given fell the other day on an outstretched hand he has got pain on the lateral aspect of his left hand no numbness tingling no loss of function just pain making a fist and does not wake him up at night has not really tried to take anything for it [id number] pain Aggie Roberto MD Attn: [employer]ing[address] , [place], [address], [facility] 02/09/2025 14:37:38
--- OUTSIDE RECORDS SUMMARY | 2025-02-09 15:11 | XMS_ITS | Data Portability ---
Author Organization [place] [facility], Main Office Address [address] [place] [address] Assessment Encounter Date Assessment Date Assessment LastModified by Organization Details LastModified Time 02/01/2023 02/01/2023 He was not seen for dyslipidemia diabetes or other problems today those will be for his next appointment he will get that blood work done as far as the ecchymosis goes it just looks like a bruise he must have bumped his arm on something according to him it is already improving I told him to monitor it should be gone in 2-3 weeks if not he can call me back [email or web address] Not available 02/01/2023 11:16:30 05/13/2023 05/13/2023 Diabetes is uncontrolled there is no history of thyroid cancer personally or family dunham and nothing to suggest multiple endocrine neoplasia type 2 syndrome will try to get him approved for Ozempic he is agreeable side effects discussed other medical problems have been discussed as well I will see him back 4 weeks after starting the Ozempic if he cannot get the Ozempic approved will see him back in 4 months standard we do not get Ozempic approved we will need either insulin or another strategy Not available 05/14/2023 20:46:38 06/24/2023 06/24/2023 Continue current therapy he has been doing well ozempic no side effects working fine see me back in 4 months [email or web address] Not available 06/25/2023 07:38:23 09/23/2023 09/23/2023 Continue current therapy will monitor the chest wall pain again is markedly better his other medical problems appear to be doing fine his blood work been reviewed no side effects from medication follow-up 4 months. Great reduction in A1c [email or web address] Not available 09/23/2023 22:01:09 Plan of Treatment Reminders Order Date Submit Date Provider Last Modified By Organization Details Last Modified Time Details Appointments Follow Up 15 2024 11:30A M Santy Torres DPM Not available Not available Not available Lab CMP, serum or plasma 2022 023 [employer] [facility], [address], [place], [address], 05/13/2023 11:49:50 lipid panel, serum [address] [facility], [address], [place], [address], 05/10/2023 11:37:16 HbA1c (hemoglob in A1c), blood 2022 023 [facility], [address], [place], [address], 05/13/2023 11:49:50 CBC w/ auto diff 2022 023 [facility], [address], [place], [address], 05/13/2023 11:49:50 Referral None recorded. Procedures None recorded. Surgeries None recorded. Imaging None recorded. Medication Orders Ozempic 0.25 mg or 0.5 mg (2 mg/3 mL) subcutane ous pen injector 2022 023 [id number], [address] , [place], [place], [id number], 05/13/2023 13:19:10 Patient TargetsNo targets recorded. Patient InstructionsNo instructions recorded. Reason for Referral None Reported. Results Created Date Observation Date Name Description Value Unit Range Abnormal Flag Note LastModifiedBy Organization Detail LastModifiedTime Result Notes None recorded. Problems Name Problem SNOMED Code Status Onset Date Resolution Date Notes Provider Name and Address Organization Details Recorded Time Disorder of lower limb 548248236 Active Not Available [facility] 01:14:50 Benign essential hypertens ion 2995559 Active Not Available [facility] 3 01:14:50 Lesion of skin of face 61651967056 6 Active 2017 Not Available [facility] 3 01:14:50 Abdominal pain 78116967 Completed Not Available [facility] 3 01:14:50 Gastroeso phageal reflux disease 749495663 Active Not Available [facility] 3 01:14:50 Eruption 136320205 Completed Not Available [facility] 3 01:14:50 Type 2 diabetes mellitus without complicat ion 595173117 Active Not Available [facility] 3 01:14:50 Dyslipide johnson 351311141 Active 2020 Not Available [facility] 3 01:14:51 Anxiety 21821739 Active 2018 Not Available [facility] 3 01:14:51 Rhinitis 02866069 Active 2017 Not Available [facility] 3 01:14:51 Venous stasis 44102098 Active Not Available [facility] 3 01:14:51 Pain in limb 91541065 Active Not Available [facility] 3 01:14:51 Ecchymosi s 748594755 Active 2022 Yash Roberto MD [address] [place] [address], [address] , [facility] [employer] [facility] [employer] [facility] 3 11:15:54 Open wound of left foot 65896600376 662195 Active 2022 Ekta Smith MA null, [employer] [facility] [employer] [facility] [employer] 3 11:23:18 Puncture wound of foot 27427886 Active 2022 JANIE Tijerina, [employer] [facility] [employer] [facility] 3 11:24:00 Benign prostatic hyperplas ia with outflow obstructi on 236458661 Active 2022 JANIE Mc, [employer] [facility] 3 14:35:52 Problem Notes None recorded. Procedures Surgical History Date Name Laterality Status Provider Name and Address Organization Details Recorded Time 11/10/19 25 Nail Debridement completed Paulo Chamberlain DPM [address], [address], [place], [address], [facility] [employer] [facility] 11/23/2024 09:58:59 10/25/19 17 Colonoscopy completed Not Available [facility] 12/06/19 23 00:59:49 Imaging Results None recorded. Procedure Notes None recorded. Medical Equipment None Reported. Allergies No known drug allergies Medications Name Sig Start Date Stop Date Status Note LastModified by Organization Details LastModified Time cyclobenz aprine 10 mg tablet 02/11 completed Not Available Not Available Not Available metformin 500 mg tablet TAKE 1 TABLET BY MOUTH TWICE DAILY 2022 active Not Available Not Available Not Avai lable bupropion HCl SR 150 mg tablet,12 hr sustained -release TAKE 1 TABLET BY MOUTH DAILY active Not Available Not Available No t Available clindamyc in HCl 300 mg capsule TAKE 1 CAPSULE BY MOUTH THREE TIMES A DAY FOR 7 DAYS active Not Available Not Available No t Available ammonium lactate 12 % lotion aplly to affected area daily as needed 09/05 completed Not Available Not Available Not Available azithromy nisa 250 mg tablet TK 2 TS PO ON DAY 1, THEN TK 1 T PO D FOR 4 DAYS 04/13 completed Not Available Not Available Not Available hydrocodo ne 5 mg-acetam inophen 325 mg tablet 03/22 completed Not Available Not Available Not Available clobetaso l 0.05 % topical cream APPLY TWICE DAILY TO RASH FOR 2-4 WEEKS THEN TAKE A BREAK NEEDED active Not Available Not Available No t Available Tamiflu 75 mg capsule 06/19 completed Not Available Not Available Not Available tramadol 50 mg tablet 02/11 completed Not Available Not Available Not Available sildenafi l 100 mg tablet Take 1 tablet every 24 hours by oral route. active 1/2 - 1 tab prn 60 min prior to sex on empty stomach Not Available Not Available Not Available triamcino lone acetonide 0.1 % topical cream apply to hands qhs active Not Available Not Available No t Available meloxicam 7.5 mg tablet 03/22 completed Not Available Not Available Not Available citalopra m 20 mg tablet TAKE 1 TABLET BY MOUTH DAILY active Not Available Not Available No t Available cephalexi n 500 mg capsule Take 1 capsule 3 times a day by oral route for 10 days. 08/19 completed Not Available Not Available Not Available pantopraz ole 40 mg tablet,de layed release TAKE 1 TABLET BY MOUTH DAILY 2023 active Not Available Not Available Not Avai lable lisinopri l 10 mg tablet TAKE 1 TABLET BY MOUTH DAILY 2023 active Not Available Not Available Not Avai lable monteluka st 10 mg tablet TAKE 1 TABLET BY MOUTH DAILY 2023 active Not Available Not Available Not Avai lable clobetaso l 0.05 % topical ointment 09/05 completed Not Available Not Available Not Available levofloxa nisa 500 mg tablet 06/19 completed Not Available Not Available Not Available levofloxa nisa 750 mg tablet 06/19 completed Not Available Not Available Not Available methylpre dnisolone 4 mg tablets in a dose pack TAKE DIRECTED ON PACKAGE FOR 6 DAYS 05/07 completed Not Available Not Available Not Available ondansetr on 4 mg disintegr ating tablet 03/22 completed Not Available Not Available Not Available fluticaso ne propionat e 50 mcg/actua tion nasal spray,[employer] [place] 2 sprays every day by intranas al route. active Not Available Not Available No t Available sertralin e 50 mg tablet TAKE ONE TABLET DAILY 12/07 completed Not Available Not Available Not Available naproxen 500 mg tablet TAKE ONE TABLET TWICE DAILY WITH FOOD OR MILK 09/02 completed Not Available Not Available Not Available amoxicill in 875 mg-potass ium clavulana te 125 mg tablet 06/19 completed Not Available Not Available Not Available rosuvasta tin 10 mg tablet TAKE 1 TABLET BY MOUTH DAILY active Not Available Not Available No t Available alfuzosin ER 10 mg tablet,ex tended release 24 hr TAKE 1 TABLET BY MOUTH AT BEDTIME active Not Available Not Available No t Available Spiriva with [employer] r 18 mcg and inhalatio n capsules Inhale 1 capsule every day by inhalati on route. active Not Available Not Available No t Available loratadin e 09/02 completed Not Available Not Available Not Available Centrum Silver 2020 active Not Available Not Available Not Avai lable cephalexi n 750 mg capsule TAKE 1 CAPSULE BY MOUTH THREE TIMES DAILY FOR 7 DAYS 09/05 completed Not Available Not Available Not Available ProAir HFA 90 mcg/actua tion aerosol inhaler 02/11 completed Not Available Not Available Not Available Contour Next Test Strips 09/02 completed Not Available Not Available Not Available Tudorza Pressair 400 mcg/actua tion breath activated INHALE 1 PUFF EVERY 12 HOURS 09/02 completed Not Available Not Available Not Available Ozempic 1 mg/dose (4 mg/3 mL) subcutane ous pen injector INJECT 1 MG EVERY WEEK BY SUBCUTAN EOUS ROUTE. active Not Available Not Available No t Available Ozempic 0.25 mg or 0.5 mg (2 mg/3 mL) subcutane ous pen injector INJECT SUBCUTAN EOUS 0.25MG ONCE A WEEK FOR 4 WEEKS active Not Available Not Available No t Available Vitals Date Recorded Body height Body mass index (BMI) Body weight Heart rate Oxygen saturation Oxygen saturation in Arterial blood by Pulse oximetry Body temperature Systolic blood pressure Diastolic blood pressure Provider Name and Address Organization Details Last Updated DateTime 3 180.34 cm 29.5 kg/m2 15434.4 3 g 73 /min 98 % 98 % 97.1 [degF] 146 mm[Hg] 88 mm[Hg] Ekta Smith MA [employer] [facility] 3 10:54:33 Date Recorded Body height Body temperature Heart rate Oxygen saturation Oxygen saturation in Arterial blood by Pulse oximetry Body mass index (BMI) Body weight Systolic blood pressure Diastolic blood pressure Provider Name and Address Organization Details Last Updated DateTime 3 180.34 cm 98.1 [degF] 68 /min 98 % 98 % 29 kg/m2 92283.2 1 g 132 mm[Hg] 86 mm[Hg] Ekta Smith MA [employer] [facility] 3 11:21:56 Date Recorded Body height Body mass index (BMI) Body weight Body temperature Heart rate Systolic blood pressure Diastolic blood pressure Provider Name and Address Organization Details Last Updated DateTime 3 180.34 cm 27.9 kg/m2 20120.4 7 g 97.2 [degF] 67 /min 136 mm[Hg] 86 mm[Hg] CHIN Garner [employer] [facility] [employer] [facility] 3 11:20:34 Date Recorded Body height Body mass index (BMI) Body weight Body temperature Heart rate Oxygen saturation Oxygen saturation in Arterial blood by Pulse oximetry Systolic blood pressure Diastolic blood pressure Provider Name and Address Organization Details Last Updated DateTime 3 180.34 cm 28.2 kg/m2 35617.6 6 g 97.9 [degF] 80 /min 96 % 96 % 152 mm[Hg] 70 mm[Hg] Fidelia zapien [facility] [employer] [facility] 3 12:09:45 Date Recorded Body weight Oxygen saturation Oxygen saturation in Arterial blood by Pulse oximetry Body temperature Heart rate Provider Name and Address Organization Details Last Updated DateTime 5 40175.0 7 g 98 % 98 % 98.4 [degF] 84 /min Arian Charlie, [facility] [employer] [facility] 5 15:09:27 Social History Question Answer Notes LastModified by Organizat ion Details LastModified Time Tobacco Smoking Status Former Smoker quit 2011 Not Available [facility] 12/05/2022 00:58:41 Do You Have An Advance Directive? No MIGRATION.58314 07558 Information not available 12/05/2022 What Is Your Level Of Alcohol Consumption? Occasional MIGRATION.97961 30375 Information not available 12/05/2022 Are You Blind Or Do You Have Difficulty Seeing? No MIGRATION.29236 56493 Information not available 12/05/2022 What Is Your Level Of Caffeine Consumption? Moderate MIGRATION.97858 81253 Information not available 12/05/2022 How Much Tobacco Do You Chew? None MIGRATION.11896 43407 Information not available 12/05/2022 In The 14 Days Before Symptom Onset, Have You Had Close Contact With A Laboratory-confi rmed COVID-19 While That Case Was Ill? No MIGRATION.65992 49901 Information not available 12/05/2022 In The 14 Days Before Symptom Onset, Have You Had Close Contact With A Person Who Is Under Investigation For COVID-19 While That Person Was Ill? No MIGRATION.91667 05850 Information not available 12/05/2022 Are You Deaf Or Do You Have Serious Difficulty Hearing? No MIGRATION.14538 65691 Information not available 12/05/2022 What Type Of Diet Are You Following? REGULAR MIGRATION.89003 80266 Information not available 12/05/2022 Which Illicit Or Recreational Drugs Have You Used? None MIGRATION.43665 72734 Information not available 12/05/2022 Do You Or Have You Ever Used E-cigarettes Or Vape? Never Used Electronic Cigarettes MIGRATION.45976 77040 Information not available 12/05/2022 What Is The Highest Grade Or Level Of School You Have Completed Or The Highest Degree You Have Received? [id number] MIGRATION.88032 61871 Information not available 12/05/2022 What Is Your Occupation? Retired MIGRATION.13085 69973 Information not available 12/05/2022 Have There Been Any Changes To Your Family Or Social Situation? No MIGRATION.86445 25132 Information not available 12/05/2022 What Is The Fluoride Status Of Your Home? Unknown MIGRATION.62454 44723 Information not available 12/05/2022 When Did You Quit Smoking? 6-10yearssincelast cigarette MIGRATION.80498 22670 Information not available 12/05/2022 Are There Any Guns Present In Your Home? No MIGRATION.53979 84000 Information not available 12/05/2022 Do You Use Insect Repellent Routinely? No MIGRATION.25876 48160 Information not available 12/05/2022 Where Do You Live? [facility] MIGRATION.17769 93437 Information not available 12/05/2022 Do You Have A Medical Power Of Box Sealing Machine Catcher? Yes MIGRATION.59131 42750 Information not available 12/05/2022 What Was The Date Of Your Most Recent Tobacco Screening? 11/10/2024 [email or web address] Information not available 11/10/2024 Have You Ever Been Counseled For Unhealthy Alcohol Use? No MIGRATION.77280 86031 Information not available 12/05/2022 Do You Have Any Pets? Yes MIGRATION.32809 02431 Information not available 12/05/2022 What Is Your Relationship Status? MIGRATION.68290 16838 Information not available 12/05/2022 Do You Use Your Seat Belt Or Car Seat Routinely? Yes MIGRATION.03001 42061 Information not available 12/05/2022 Do You Have Smoke And Carbon Monoxide Detectors In Your Home? Yes MIGRATION.29492 80503 Information not available 12/05/2022 Are You Passively Exposed To Smoke? No MIGRATION.36069 40543 Information not available 12/05/2022 Do You Or Have You Ever Used Smokeless Tobacco? Never Used Smokeless Tobacco MIGRATION.35881 50443 Information not available 12/05/2022 Are There Any Smokers In Your House? No MIGRATION.41959 00620 Information not available 12/05/2022 How Much Tobacco Do You Smoke? No MIGRATION.86527 08540 Information not available 12/05/2022 What Types Of Sporting Activities Do You Participate In? None MIGRATION.21475 96102 Information not available 12/05/2022 Do You Feel Stressed (tense, Restless, Nervous, Or Anxious, Or Unable To Sleep At Night)? [id number] MIGRATION.31973 88233 Information not available 12/05/2022 Do You Use Any Illicit Or Recreational Drugs? No MIGRATION.16905 34157 Information not available 12/05/2022 Do You Use Sunscreen Routinely? Yes MIGRATION.15191 63462 Information not available 12/05/2022 Has Tobacco Cessation Counseling Been Provided? No MIGRATION.06355 68487 Information not available 12/05/2022 Have You Recently Traveled Abroad? No MIGRATION.29428 09305 Information not available 12/05/2022 Do You Have Any Dietary Restrictions? No MIGRATION.86807 15464 Information not available 12/05/2022 Do You Or Have You Ever Used Any Other Forms Of Tobacco Or Nicotine? No MIGRATION.44542 23313 Information not available 12/05/2022 Sex: Male Functional Status Question Answer Note LastModified by Organizat ion Details LastModified Time Do you have difficulty walking or climbing stairs? No MIGRATION.3041541 026 Information not available 12/05/2022 Do you have transportation difficulties? No MIGRATION.6441753 026 Information not available 12/05/2022 Are you able to walk? YESWOREST MIGRATION.1284425 026 Information not available 12/05/2022 Do you have difficulty doing errands alone? No MIGRATION.4364986 026 Information not available 12/05/2022 Are you able to care for yourself? Yes MIGRATION.3722129 026 Information not available 12/05/2022 Do you have difficulty dressing or bathing? No MIGRATION.9439408 026 Information not available 12/05/2022 What is your exercise level? Moderate MIGRATION.2197442 026 Information not available 12/05/2022 Mental Status Question Answer Note LastModified by Organizat ion Details LastModified Time Do you have difficulty concentrating, remembering or making decisions? No MIGRATION.145806527 6 Information not available 12/05/2022 Family History Relationship Description Onset Age of this Age Resolved Age Notes LastModified by Organization Details LastModified Time Sister Diabetes mellitus MIGRATION.017 [id number] Not available 12/05/2022 01:00:00 Sister Hypertensive disorder MIGRATION.128 2406162 Not available 12/05/2022 01:00:00 Brother Disease of liver MIGRATION.599 7266461 Not available 12/05/2022 01:00:00 Father Diabetes mellitus MIGRATION.642 4645043 Not available 12/05/2022 01:00:00 Father Heart disease MIGRATION.956 5759781 Not available 12/05/2022 01:00:00 Father Hypertensive disorder MIGRATION.313 8829810 Not available 12/05/2022 01:00:00 Father Carcinoma of prostate MIGRATION.188 4807908 Not available 12/05/2022 01:00:00 Mother Hypertensive disorder MIGRATION.844 [id number] Not available 12/05/2022 01:00:00 Medical History Condition Response NERVE DISEASE Y BLINDNESS N RHEUMATIC FEVER N KIDNEY STONES N BLADDER PROBLEMS N MRSA N OTHER # 1 Y POLIO N LUNG DISEASE/DISORDER N COPD N RADIATION / CHEMOTHERAPY N Other # 2 N BLOOD DISEASES N EAR OR HEARING PROBLEMS N MUMPS N DEPRESSION (INCLUDING POST ) N BOWEL PROBLEMS N STROKE/TIA N ULCERS N BENIGN PROSTATIC HYPERPLASIA N MEASLES N MYOCARDIAL INFARCTION N OBESITY N GERD/NAUSEA Y ANEURYSM N URINARY/BLADDER/KIDNEY PROBLEMS N CORONARY ARTERY DISEASE (CAD) N ADDICTION CONCERNS N Impotence N ENDOMETRIOSIS N USE OF BLOOD THINNERS N SKIN PROBLEMS N GASTROINTESTINAL DISORDER N PERIPHERAL VASCULAR DISEASE Y MUSCLE,JOINT OR BONE PROBLEMS N GASTROINTESTINAL BLEEDING N BLOOD CLOTS Y ASTHMA N CATARACTS N ERECTILE DYSFUNCTION N VARICOSITIES N GI PROBLEMS N Low Testosterone N INFERTILITY N AIDS/HIV N CHEMOTHERAPY / RADIATION N LIVER DISEASE N MALE HYPOGONADISM N HYPERTENSION Y Deficiency N TOURETTE'S N ANXIETY DISORDER Y BLOOD TRANSFUSION N ANEMIA/BLOOD DISORDER N CHRONIC EAR INFECTIONS N BRONCHITIS N TUBERCULOSIS N GLAUCOMA N FOOT PROBLEM N DIVERTICULITIS Y SLEEP APNEA N CHICKENPOX N INFECTIOUS DISEASE N PROSTATE N HEART ARRHYTHMIA N INSOMNIA N HIGH CHOLESTEROL / HYPERLIPIDEMIA Y HYPERTHYROIDISM N EYE PROBLEMS N EDEMA N CHRONIC PAIN SYNDROME N HYPOTHYROIDISM N CONSTIPATION N CAROTID BLOCKAGE Y BACK / NECK PROBLEMS N HAVE YOU BEEN HOSPITALIZED OR SEEN IN [facility] ER IN THE PAST YEAR ? N ATHEROSCLEROSIS N BREAST PROBLEMS N DIALYSIS N ECZEMA N OSTEOPOROSIS Y ARTHRITIS Y APPENDICITIS N DIABETES, TYPE Y BAD TEETH N ENT N HEARTBURN / REFLUX N AUTISM SPECTRUM DISORDER (ASD) N HEPATITIS / LIVER DISEASE N GOUT N SLEEP DISORDER Y ALZHEIMER'S DISEASE N Brain Problems N HERPES N DEMENTIA N SEIZURES/EPILEPSY N HEADACHES/MIGRAINES N VASCULAR DISEASE Y PACEMAKER N Blood Disorder N DIZZINESS N KIDNEY DISEASE N HEART DISEASE/HEART PROBLEMS N MULTIPLE SCLEROSIS N CARDIAC ARRHYTHMIA N CANCER: SPECIFY N Gall Stones N ATRIAL FIBRILLATION N PULMONARY EMBOLISM N AUTOIMMUNE DISEASE N Immunizations Vaccine Type Date Status Note Provider Nam e and Address Organization Details Recorded Time Td (adult), 5 Lf tetanus toxoid, preservative free, adsorbed 3 completed Loraine Chaparro RN [facility], [place] [facility] 05/10/2023 14:02:00 Past Encounters Encounter ID Performer Location Encounter Start Date Encounter Closed Date Diagnosis/Indication Diagnosis SNOMED-CT Code Diagnosis ICD10 Code Diagnosis Note [id number] Yash Roberto MD [facility] [address] [address] 12/07/2020 00:00:00 12/15/2020 20:44:46 [id number] Yash Roberto MD [facility] [address] [address] 05/26/2021 00:00:00 05/27/2021 16:52:27 [id number] Aneesh Chaudhari MD [facility] [address] [address] 09/05/2021 00:00:00 09/05/2021 15:52:39 [id number] Yash Roberto MD [facility] [address] [address] 09/22/2021 00:00:00 09/23/2021 18:52:56 [id number] MD LIBRADO [place] [address] [address] 12/12/2021 00:00:00 12/12/2021 14:58:19 [id number] Yash Roberto MD [facility] Internal Med [facility] [address] [address] 04/13/2022 00:00:00 04/13/2022 16:54:29 [id number] Aneesh Chaudhari MD [facility] [address] [place], [place] [address] [place] [address] 06/12/2022 00:00:00 06/12/2022 14:31:51 [id number] Yash Roberto MD [facility] Internal Med [facility] [address] [facility] [address] [address] 10/15/2022 00:00:00 10/15/2022 15:02:18 [id number] Yash Roberto MD [facility] Internal Med [facility] [address] [facility] [address] [address] 02/01/2023 10:45:49 02/01/2023 11:11:29 Dyslipidemia 112276469 E78.5 Type 2 zandra betes mellitus without complication 110096878 E11.9 Benign ess ential hypertension 3611421 I10 Ecchymosis 619420398 R58 [id number] Yash Roberto MD [facility] Internal Med [facility] [address] [address] 05/13/2023 11:10:14 05/13/2023 11:55:04 Type 2 diabetes mellitus without complication 994405055 E11.9 Anxiety 58183090 F41.9 Dyslipidemia 652772236 E 78.5 Benign ess ential hypertension 0658152 I10 Gastroesop hageal reflux disease 431031125 K21.9 [id number] Yash Roberto MD [facility] Internal Med [facility] [address] [address] 06/24/2023 11:13:14 06/24/2023 12:24:04 Dyslipidemia 667582237 E78.5 Anxiety 07207679 F41.9 Benign ess ential hypertension 6873820 I10 Gastroesop hageal reflux disease 832382761 K21.9 Venous stasis 71849184 I 87.8 [id number] Yash Roberto MD [facility] [address] [facility], [address] [place] [address] 09/23/2023 11:40:42 09/23/2023 12:33:07 Dyslipidemia 152252296 E78.5 Anxiety 10725008 F41.9 Benign ess ential hypertension 8336572 I10 Benign pro static hyperplasia with outflow obstruction 622193252 N40.1 Type 2 zandra betes mellitus without complication 616020715 E11.9 [id number] Paulo Chamberlain DPM [facility] [place] [address] [facility] [place] [address] 11/10/2024 14:54:03 11/24/2024 04:07:48 Health Concerns Section Related Observation LastModified by Organization Detai ls LastModified Time None Recorded Concern Status LastModified by Organization Details LastModified Time None Recorded Advance Directives Directive N: Payers Encounter Date Sequence Insurance Name Policy Number Policy Dunham Covered Member ID Dunham Member ID Guarantor Name 02/01/2023 1 [facility] (MEDICARE REPLACEMENT/A DVANTAGE - HMO) [id number] Surendra Mitchell [id number] Surendra Mitchell 05/13/2023 1 [facility] (MEDICARE REPLACEMENT/A DVANTAGE - HMO) [id number] Surendra Mitchell [id number] Surendra Mitchell 06/24/2023 1 [facility] (MEDICARE REPLACEMENT/A DVANTAGE - HMO) [id number] Surendra Mitchell [id number] Surendra Mitchell 09/23/2023 1 [facility] (MEDICARE REPLACEMENT/A DVANTAGE - HMO) [id number] Surendra Mitchell [id number] Surendra Mitchell 11/10/2024 1 [facility] (MEDICARE REPLACEMENT/A DVANTAGE - HMO) [id number] Surendra Mitchell [id number] Surendra Mitchell Notes Date Note Type Note Provider Name and Address Organization Details Recorded Time 02/01/2023 text/html has a skin lesio n he wants me to see Yash Roberto MD [address] [facility], [address], [place], [address], [facility] [employer] [facility] 02/01/2023 11:17:01 05/13/2023 text/html hypertension no headache no dizziness. Anxiety stable on his current medical regimen without side effects no SI or HI. Dyslipidemia initially his diet is pretty good he watches saturated fat. venous insufficiency legs no evidence of cellulitis or dermatitis. GERD no nausea no vomiting Yash Roberto MD [address] [address], [place], [address], [facility] [employer] [facility] 05/14/2023 20:46:57 06/24/2023 text/html hypertension no headache no dizziness. Anxiety stable on his current medical regimen without side effects no SI or HI. Dyslipidemia initially his diet is pretty good he watches saturated fat. venous insufficiency legs no evidence of cellulitis or dermatitis. GERD no nausea no vomiting Yash Roberto MD [address] [address], [place], [address], [facility] [employer] [facility] 06/25/2023 07:38:39 09/23/2023 text/html hypertension no headache no dizziness. Anxiety stable on his current medical regimen without side effects no SI or HI. Dyslipidemia initially his diet is pretty good he watches saturated fat. venous insufficiency legs no evidence of cellulitis or dermatitis. GERD no nausea no vomiting he fell the other day and slid down on his chest did not hit head no neck pain little bit of pain in his left upper chest afterwards without any chest pain or anything like that took some Advil much better Yash Roberto MD [address] [address], [place], [address], [facility] [employer] [facility] 09/23/2023 22:01:50 11/10/2024 text/html Pt RTC for routi ne c/o thick painful ingrown, dystrophic nails jamarcus. Paulo Chamberlain, CHANELLE [address] [address], [place], [address], [facility] [employer] [facility] 11/23/2024 09:59:04
--- OUTSIDE RECORDS SUMMARY | 2025-02-09 15:11 | XMS_ITS | Referral Summary ---
Author Organization [facility] Address [facility] [place] [address] Care Team Providers Care Customer Resolution Specialist Name Role Phone Yash Roberto MD Primary Care Provider Allergies No known active allergies Medications multivit-min/FA /lycopen/lutein (CENTRUM SILVER MEN ORAL) Centrum Silver Activ e buPROPion SR (WELLBUTRIN SR) 150 mg 12 hr tablet 1 Active citalopram (CeleXA) 20 mg tablet 1 Active clobetasoL (TEMOVATE) 0.05 % ointment 1 Active lisinopriL (PRINIVIL,ZESTR IL) 10 mg tablet 1 Active metFORMIN (GLUCOPHAGE) 500 mg tablet metformin 500 mg tablet TAKE 1 TABLET BY MOUTH TWICE DAILY Active montelukast (SINGULAIR) 10 mg tablet [address] (PROTONIX) 40 mg EC tablet 1 Active tiotropium (Spiriva with HandiHaler) 18 mcg per inhalation capsule Spiriva with HandiHaler 18 mcg and inhalation capsules Active rosuvastatin (CRESTOR) 10 mg tablet 1 Active Active Problems Problem Noted Date Diagnosed Date Memory impairment 04/12/2021 Assessment & Plan (05/26/2021 3:42 PM CDT): Patient's cognitive decline is historically most consistent with mild cognitive impairment. MRI and laboratory assessment to date is normal. Observation from the neurological standpoint is appropriate at this time. It was discussed with patient and his that he is at increased risk of subsequent development of dementia and if progressive cognitive loss would persist a trial of donepezil could be recommended. He will follow-up in neurology clinic on an as-needed basis. Assessment & Plan (04/12/2021 11:04 AM CDT): Patient has both report a 2 year history of progressive cognitive decline. Mild cognitive deficits are documented on objective examination. I will obtain an MRI brain in addition to laboratory assessment to include TSH, T4, B12, treponemal antibody survey. I will see him back thereafter. Tardive dyskinesia 04/12/2021 Assessment & Plan (05/26/2021 3:42 PM CDT): He reports that his dyskinesia have eased. From his historical description it sounds more like simple motor tic than chorea at this time. Observation from the neurological standpoint would be appropriate. Assessment & Plan (04/12/2021 11:02 AM CDT): Patient has a 6 month history of dyskinesia in both hands. He has no history of neuroleptic treatment in past. One possibility would be Windsor's disease particularly in concert with cognitive decline. I will obtain a Windsor's DNA screening and see him back thereafter. Social History Tobacco Use Types Packs/Day Years Used Date Smoking Tobacco: Former Smokeless Tobacco: Never Tobacco Cessation:Counseling Given: Not Answered Personal Safety Answer Date Recorded Getting School Help Needed Not on file 12/07 Sex and Gender Information Value Date Recorded Sex Assigned at Not on file Legal Sex Male 1:21 PM CDT Gender Identity Not on file Sexual Orientation Not on file Last Filed Vital Signs Vital Sign Reading Time Taken Comments Blood Pressure 183/70 07/30/2024 10:12 AM CDT Pulse 77 07/30/2024 10:12 AM CDT Temperature 36.5 C (97.7 F) 05/26/2021 3:02 PM CDT Respiratory Rate 18 07/30/2024 10:12 AM CDT Oxygen Saturation 97% 07/30/2024 10:12 AM CDT Inhaled Oxygen Concentration - - Weight 92.4 kg (203 lb 9.6 oz) 07/30/2024 10:12 AM CDT Height 182.9 cm (6') 07/30/2024 10:12 AM CDT Body Mass Index 27.61 07/30/2024 10:12 AM CDT Plan of Treatment Not on file Insurance DR GALLEGOS [address] MEDICARE ADVANTAGE Care Teams Customer Resolution Specialist Relationship Specialty Start Date End Date Yash Roberto MD PCP - General Internal Medicine 02/01/21
--- OUTSIDE RECORDS SUMMARY | 2025-02-09 15:11 | XMS_ITS | CONTINUITY OF CARE DOCUMENT ---
Author Name dalton hoffman Address Unknown Organization [facility] Address [address] [place] [address] [address] [place] [address] Phone [phone] Care Team Providers Care Race Steward Name Role Phone AGGIE PURCELL MD Unavailable [phone] AGGIE PURCELL MD Unavailable [phone] INSURANCE PROVIDERS Payer name Policy type / Coverage type [place] red democrat ID [facility] [id number]
--- OUTSIDE RECORDS SUMMARY | 2025-02-09 15:11 | XMS_ITS | Clinical Summary ---
Author Organization [facility] [place] Address [facility] [place] [address] Care Team Providers Care Railroad Maintenance Clerk Name Role Phone Yash Roberto MD Primary Care Provider [phone] Allergies No known active allergies Medications multivit-min/FA [...] treatment in past. One possibility would be [place]'s disease particularly in concert with cognitive decline. I will obtain a [place]'s DNA screening and see him back thereafter. Surgical History Surgery Date Site/Laterality Comments ORAL SURGERY Medical History Medical History Date Comments Diabetes (HCC) Depression Hypertension High cholesterol Family History Medical History Relation Name Comments Liver disease Brother Diabetes Father Heart failure Father Hypothyroidism Mother Diabetes Sister 1 No Known Problems Sister 2 Hypothyroidism Sister 3 Relation Name Status Comments Brother Father Mother Sister 1 Alive Sister 2 Alive Sister 3 Alive Social History Tobacco Use Types Packs/Day Years Used Date Smoking Tobacco: Former Smokeless Tobacco: Never Tobacco Cessation:Counseling Given: Not Answered Personal Safety Answer Date Recorded Getting School Help Needed Not on file 12/07 Sex and Gender Information Value Date Recorded Sex Assigned at Not on file Legal Sex Male 1:21 PM CDT Gender Identity Not on file Sexual Orientation Not on file Obstetrics History Last Filed Vital Signs Vital Sign Reading [...] 07/30/2024 10:12 AM CDT Plan of Treatment Health Maintenance Due Date Last Done Comments Colon Cancer Screening-Colonoscopy 1950 Depression Screening 1950 Fall Risk Assessment 1950 Hepatitis C Screening 1951 Hepatitis B Screening 1969 Pneumococcal vaccine 65+ (1 of 1 - PCV) 2001 Zoster Vaccine (1 of 2) 2001 Abdominal Aortic Aneurysm (AAA) Screen 2016 Well Visit 65+ 2016 DTaP/Tdap/Td Vaccine (1 - Tdap) 05/11/2023 Influenza Vaccine (#1) 2024 [place] [address] [facility] MEDICARE ADVANTAGE [facility] MEDICARE Address: [facility] [address] [place] [address] [facility] [place] [address] Care Teams Railroad Maintenance Clerk Relationship Specialty Start Date End Date Yash Roberto MD PCP - General Internal Medicine 02/01/21
--- OUTSIDE RECORDS SUMMARY | 2025-02-09 15:12 | XMS_ITS | Continuity of Care Document ---
Author Organization [facility] ([facility]) Address [address] [place] [address] Care Team Providers Care Reservations Specialist Name Role Phone YASH ROBERTO Primary Care Provider [phone] YASH MAZARIEGOS Neurologist RAMON RODRIGUEZ Urologist Assessment Encounter Date Assessment Date Assessment LastModified by Organization Details LastModified Time 02/09/2025 02/09/2025 X-ray of the left wrist his diagnosis have been discussed in [...] diastolic he knows to contact the office [email or web address] Not available 02/09/2025 14:37:19 Plan of Treatment Reminders Order Date Submit Date Provider Last Modified By Organization Details Last Modified Time Details Appointments ANY 15 2024 01:00P Janina Roberto MD Not available Not available Not available ANY 15 2024 09:15A Janina Roberto MD Not available Not available Not available Lab HbA1c (hemoglo bin A1c), blood 2024 025 [email or web address] [facility], [address] [place] [address], [address], 02/09/2025 16:09:46 lipid panel, serum 2024 025 [email or web address] [facility], [address] [place] [address], [place], [address], 02/09/2025 16:09:46 CMP, serum or plasma 2024 025 [email or web address] [facility], [address] [place] [address], [place], [address], 02/09/2025 16:09:46 CBC w/ auto diff 2024 025 [email or web address] [facility], [address] [place] [address], [place], [address], 02/09/2025 16:09:46 Referral None recorded . Procedures None recorded . Surgeries None recorded . Imaging XR, hand [address] [facility], [address], [place], [address], 02/09/2025 16:09:46 Medication Orders None recorded . Patient TargetsNo targets recorded. Patient Instructions Encounter Date Encounter Id Patient Instructions Last Modified By Organization Details Last Modified Time 02/09/2025 [id number] A healthy lifestyle: care instructions [email or web address] Not available 02/09/2025 16:09:46 Reason for Referral None Reported. Problems Name Problem SNOMED Code Status Onset Date Resolution Date Notes Provider Name and Address Organization Details Recorded Time Type 2 diabetes mellitus 21839194 Active 2023 Yash Roberto MD Attn: Carl kowalski,[address] [facility], [place], [address], [facility] - [facility] 4 21:03:44 Essential hypertension 01482947 Active 2023 Yash Roberto MD Attn: Carl kowalski,[address] [facility], [place], [address], [facility] - [facility] 4 21:03:46 Hyperlipidemia 04385716 Active 2023 Yash Roberto MD Attn: Carl [email or web address] [facility], [place], [address], [place] [facility] 4 21:03:50 Stasis dermatitis of lower limb due to chronic peripheral venous hypertension 354713034 Active 2023 Yash Roberto MD Attn: Carl kowalski,[address] [facility], [place], [address], [place] [facility] 4 21:03:51 Gastroesophage al reflux disease without esophagitis 471734841 Active 2023 Yash Roberto MD Attn: Carl kowalski,[address] [facility], [place], [address], [place] [facility] 4 21:03:53 Anxiety 78327407 Active 2023 Yash Roberto MD Attn: Carl kowalski,[address] [facility], [place], [address], [place] [facility] 4 21:03:55 Problem Notes None recorded. Medical Equipment None Reported. [...] Available Not Available Vitals Date Recorded Body height Body mass index (BMI) Body weight Heart rate Oxygen saturation Oxygen saturation in Arterial blood by Pulse oximetry Systolic blood pressure Diastolic blood pressure Provider Name and Address Organization Details Last Updated DateTime 5 182.88 cm 26.9 kg/m2 86150.2 9 g 82 /min 97 % 97 % 160 mm[Hg] 82 mm[Hg] Jessica Rosado MA [facility] 14:06:32 Social History Question Answer Notes LastModified by Organizat ion Details LastModified Time Tobacco Smoking Status Former Smoker quit 15 years ago Lizette rea [facility] 10/14/2024 14:14:21 Do You Have An Advance [...] 7 Days, How Much Pain Have You Fenton? Some Information not available 10/14/2024 In General, [...] Past 7 Days, How Often Have You Fenton Sleepy In The Daytime? Rarely Information not [...] Anxious, Or Unable To Sleep At Night)? [id number] Information not available 10/14/2024 Do You Use [...] Response Coronary Artery Disease N Other N High Blood Pressure Y Atrial Fibrillation N Thyroid Problems N Kidney or Bladder Problems N Blood Clots N COPD N Depression N GI Problems Y Have you had a mammogram in the last yea r? N Skin Problems N Anemia N Heart Attack (NE) N Anxiety Disorder Y Diabetes Y Muscle, Joint, or Bone Problems N Seizures/Epilepsy N Have you had a colonoscopy in the last 1 0 years? Y Acid Reflux (GERD) N Cancer N Stroke N Asthma N Allergies N Have you had a PSA blood test in the las t year? Y High Cholesterol Y Hepatitis N Liver Disease N Headaches N Heart Failure N Osteoporosis N Immunizations Vaccine [...] [facility] 02/09/2025 09:43:21 Pneumococcal conjugate PCV20, polysaccharide MTY617 conjugate, adjuvant, PF 5 completed Yash Roberto MD Attn: [employer],[address] [place], [address], [place] [facility] 10/18/2024 21:08:33 Past Encounters Encounter ID Performer Location Encounter Start Date Encounter Closed Date Diagnosis/Indication Diagnosis SNOMED-CT Code Diagnosis ICD10 Code Diagnosis Note [id number] Yash Roberto MD [facility] (Adult Med) [address] [place] [address] 02/09/2025 13:53:03 02/09/2025 14:45:11 Overweight in adulthood with body mass index of 25 or more but less than 30 927086876 Z68.26 Overweight 704652469 E66 .3 Essential hypertension 98501579 I10 Pain of left hand 637699 5661 50001 M79.642 Type 2 zandra betes mellitus 78283913 E11.9 Hyperlipidemia 46786153 E78.5 Anxiety 60946417 F41.9 Gastroesop hageal reflux disease without esophagitis 933218793 K21.9 Stasis mahi matitis of lower limb due to chronic peripheral venous hypertension 457783905 I87.399 Health Concerns Section Related Observation LastModified by Organization Detai ls LastModified Time None Recorded Concern Status LastModified by Organization Details LastModified Time None Recorded Payers Encounter Date Sequence Insurance Name Policy Number Policy Dunham Covered Member ID Dunham Member ID Guarantor Name 02/09/2025 1 [facility] (MEDICARE REPLACEMENT/A DVANTAGE - HMO) [id number] Surendra Mitchell [id number] Surendra Mitchell Notes Date Note Type Note Provider Name and Address Organization Details Recorded Time 02/09/2025 text/html diabetes no polyphagia polydipsia needs [...] really tried to take anything for it [id number]-jp-[id number] pain Yash Roberto MD Attn: [employer] [facility], [place], [address], [facility] 02/09/2025 14:37:38
== END 2025-02-09 14:59 | disposition home or self-care (01) ==
LOC: ANHIMG 15:05
PROVIDERS: PCP Internal Medicine; Visit Provider Internal Medicine
DX: M79.642 Pain in left hand (principal); S62.327A Displaced fracture of shaft of fifth metacarpal bone, left hand, initial encounter for closed fracture; X58.XXXA Exposure to other specified factors, initial encounter
CPT/HCPCS: 73130

== ENCOUNTER 2025-10-01 12:30 | Emergency (ER) | payer MEDICARE, SELFPAY ==
--- NOTE | ~2025-10-01 | XR_ITS ---
Examination: XR hand LT min 3V Clinical History: L pinky injury, CUT 5TH FINGER TODAY Comparison: X-rays 02/09/2025 Technique: 3 views left hand Findings/impression: No acute abnormality- 1. No radiopaque foreign body. 2. No acute bony abnormality. 3. Chronic fracture proximal fifth metacarpal. 4. Radiocarpal joint space narrowing. Reviewed, dictated and finalized at location [facility]
[2025-10-01 12:39] VITALS: BP 170/89; PULSE 90; RESP 16; TEMP 36.2; O2SAT 94
--- OUTSIDE RECORDS SUMMARY | 2025-10-01 12:58 | XMS_ITS | Continuity of Care Document ---
Author Organization [facility] ([facility]) Address [address] [place] [id number] Care Team Providers Care Pharmacy Services Director Name Role Phone YASH ROBERTO Primary Care Provider YASH MAZARIEGOS Neurologist RAMON RODRIGUEZ Urologist Assessment Encounter Date Assessment Date Assessment LastModified by Organization Details LastModified Time 09/21/2025 09/21/2025 We will add doxycycline. The steroid cream he will let me know how he is doing in a few days he has a appointment on October 08 he will keep the [email or web address] Not available 09/21/2025 22:03:15 Plan of Treatment Reminders Order Date Submit Date Provider Last Modified By Organization Details Last Modified Time Details Appointments ANY 15 2025 10:30A M Yash Robreto MD Not available Not available Not available Lab None recorded. Referral None recorded. Procedures None recorded. Surgeries None recorded. Imaging None recorded. Medication Orders doxycycli ne hyclate 100 mg capsule 2024 025 [email or web address] [id number], [address] , [place], [place], [id number], 09/21/2025 17:44:23 Patient TargetsNo targets recorded. Patient Instructions Encounter Date Encounter Id Patient Instructions Last Modified By Organization Details Last Modified Time 09/21/2025 [id number] A healthy lifestyle: care instructions [email or web address] Not available 09/21/2025 17:44:23 Reason for Referral None Reported. Problems Name Problem SNOMED Code Status Onset Date Resolution Date Notes Provider Name and Address Organization Details Recorded Time Type 2 diabetes mellitus 13685051 Active 2023 Yash Roberto MD Attn: Carl kowalski,[address] [place], [address], [facility] - [facility] 4 21:03:44 Essential hypertension 77811417 Active 2023 Yash Roberto MD Attn: Carl kowalski,[address] [place], [address], [place] - [facility] 4 21:03:46 Hyperlipidemia 17925275 Active 2023 Yash Roberto MD Attn: Carl kowalski,[address] [place], [address], [facility] - [facility] 4 21:03:50 Stasis dermatitis of lower limb due to chronic peripheral venous hypertension 311765334 Active 2023 Yash Roberto MD Attn: Carl kowalski,[address] [place], [address], [place] - [facility] 4 21:03:51 Gastroesophage al reflux disease without esophagitis 958468443 Active 2023 Yash Roberto MD Attn: Carl kowalski,[address] [place], [address], [place] - [facility] 4 21:03:53 Anxiety 04350345 Active 2023 Yash Roberto MD Attn: Carl kowalski,[address] [place], [address], [place] - [facility] 4 21:03:55 Problem Notes None recorded. Medical [...] elease TAKE 1 TABLET BY MOUTH DAILY active Not Available Not Available No t Available doxycycline hyclate 100 mg capsule TAKE 1 CAPSULE BY MOUTH TWICE DAILY FOR 10 DAYS active Not Available Not Available No t Available clobetasol 0.05 % topical cream active Not Available Not Available Not Available citalopram 20 mg tablet TAKE 1 TABLET BY MOUTH DAILY active Not Available Not Available No t Available pantoprazol e 40 mg tablet,veronika yed release TAKE 1 TABLET BY MOUTH DAILY 2024 active Not Available Not Available Not Avai lable lisinopril 10 mg tablet TAKE 1 TABLET BY MOUTH DAILY 2024 active Not Available Not Available Not Avai lable cephalexin 500 mg tablet TAKE 1 TABLET BY MOUTH THREE TIMES DAILY FOR 7 DAYS 04/16 completed Not Available Not Available Not Available montelukast 10 mg tablet TAKE 1 TABLET BY MOUTH DAILY 2024 active Not Available Not Available Not Avai lable clotrimazol e 1 % topical cream APPLY TOPICALLY TO RASH TWICE DAILY FOR 2 WEEKS 06/21 completed Not Available Not Available Not Available rosuvastati n 10 mg tablet TAKE 1 TABLET BY MOUTH DAILY active Not Available Not Available No t Available alfuzosin ER 10 mg tablet,exte nded release 24 hr TAKE 1 TABLET BY MOUTH EVERY NIGHT AT BEDTIME 09/21 completed Not Available Not Available Not Available Centrum active Not Available Not Avail [...] (BMI) Body weight Heart rate Oxygen saturation Systolic And Diastolic Provider Name and Address Organization Details Last Updated DateTime 5 182.88 cm 27.7 kg/m2 94996.4 8 g 77 /min 96 % 146/92 mm[Hg] Jessica Rosado [place] - [facility] 16:50:32 Social History Question Answer Notes LastModified by Organizat ion Details LastModified Time Tobacco Smoking Status Former Smoker quit 15 years ago 2014 Jessica Rosado MA [facility], [place] - [facility] 09/21/2025 16:44:44 Do You Have An Advance Directive? Yes Information not available 10/14/2024 Are You Blind [...] No Information not available 10/14/2024 Are You Deaf [...] 7 Days, How Much Pain Have You [place]? Some Information not available 10/14/2024 In General, [...] Past 7 Days, How Often Have You [place] Sleepy In The Daytime? Rarely Information not available 10/14/2024 # Alcohol Drinks Per Week 0 Information not available 10/14/2024 What Was The Date Of Your Most Recent Tobacco Screening? 09/28/2025 Information not available 09/28/2025 What Is Your Relationship Status? Information not available 12/19/2023 Do You Use Your Seat Belt Or Car Seat Routinely? Yes Information not available 10/14/2024 Do You Have Smoke And Carbon Monoxide Detectors In Your Home? Yes Information not available 12/19/2023 Do You Use Sunscreen Routinely? No Information not available 10/14/2024 Has Tobacco Cessation Counseling Been Provided? Yes Information not available 09/28/2025 On What Date Was Tobacco Cessation Counseling Provided? 09/28/2025 Information not available 09/28/2025 Sex: Male Functional Status Question Answer Note LastModified by Organizat ion Details LastModified Time Do you use any illicit or recreational drugs? No Information not available 12/19/2023 Do you or have you ever used any other forms of tobacco or nicotine? No Information not available 10/14/2024 What is your level of alcohol consumption? Occasional beer Information not available 10/14/2024 Are you currently employed? No Retired Information not available 10/14/2024 Are you able to care for yourself independently? Yes Information not available 12/19/2023 What is your exercise level? Occasional active Information not available 10/14/2024 Mental Status Question Answer Note LastModified by Organization D etails LastModified Time Do you feel stressed (tense, restless, nervous, or anxious, or unable to sleep at night)? [id number] Information not available 10/14/2024 Family History Relationship Description Onset Age of [...] GI Problems Y Anemia N Heart Attack ([place]) N Diabetes Y Seizures/Epilepsy N Have you [...] toxoid, preservative free, adsorbed 3 completed JANIE Lopez [place] - [facility] 12/19/2023 14:21:35 influenza, unspecified [...] [facility] 02/09/2025 09:43:21 Pneumococcal conjugate PCV20, polysaccharide SEM964 conjugate, adjuvant, PF 5 completed Yash Roberto MD Attn: [address] [place], [address], [place] [facility] 10/18/2024 21:08:33 Past Encounters Encounter ID Performer Location Encounter Start Date Encounter Closed Date Diagnosis/Indication Diagnosis SNOMED-CT Code Diagnosis ICD10 Code Diagnosis IMO Codes Diagnosis Note [id number] Yash Roberto MD [facility] (Adult [facility]) [address] [place] [address] 09/21/2025 16:36:38 09/21/2025 17:08:22 Overweight in adulthood with body mass index of 25 or more but less than 30 720351099 Z68.26 345723 BMI 26.9 Cellulitis of right lower limb 8368760672 7664193 L03.115 [id number] Health Concerns Section Related Observation LastModified by Organization Detai ls LastModified Time None Recorded Concern Status LastModified by Organization Details LastModified Time None Recorded Payers Encounter Date Sequence Insurance Name Policy Number Policy Dunham Covered Member ID Dunham Member ID Guarantor Name 09/21/2025 1 [facility] (MEDICARE REPLACEMENT/A DVANTAGE - HMO) [id number] Surendra Mitchell [id number] Surendra Mitchell Notes Date Note Type Note Provider Name and Address Organization Details Recorded Time 09/21/2025 text/html Acute appointment redness right lower extremity he has had this before the triamcinolone not really helping no fever chills no trauma Yash Roberto MD Attn: Account[address] [facility], [place], [address], [place] - [facility] 09/21/2025 22:03:51
--- OUTSIDE RECORDS SUMMARY | 2025-10-01 12:58 | XMS_ITS | Data Portability ---
Author Organization [facility] [place] Address [address] [place] [address] Care Team Providers Care Plating Foreman Name Role Phone AGGIE ROBERTO Primary Care Provider AGGIE MAZARIEGOS Neurologist RAMON RODRIGUEZ Urologist Assessment Encounter [...] contact the office Not available 02/09/2025 14:37:19 03/03/2025 03/03/2025 Clotrimazole and cephalexin and he will call if not improved Not available 03/14/2025 16:24:33 06/22/2025 06/22/2025 We will continue current therapy blood work has been ordered all questions have been answered I reiterated I need him to wear the compression socks as much as he can follow up 4 months [email or web address] Not available 07/18/2025 15:12:51 09/21/2025 09/21/2025 We will add doxycycline. The steroid cream he will let me know how he is doing in a few days he has a appointment on October 08 he will keep the [email or web address] Not available 09/21/2025 22:03:15 09/28/2025 09/28/2025 Eruption Query whether or not this could be fungal as well. finish the doxycycline start some Lotrimin cream [id number] keep his appointment with me October 08 [email or web address] Not available 09/28/2025 13:08:18 Plan of Treatment Reminders Order Date Submit Date Provider Last Modified By Organization Details Last Modified Time Details Appointments ANY 2025 10:30A M Aggie Roberto MD Not available Not available Not available Lab PSA, total, serum or plasma 2024 025 [facility], [address], [place], [address], 06/23/2025 11:13:36 albumin/c reatinine , mass ratio, urine 2024 025 [facility], [address], [place], [address], 06/23/2025 11:13:34 HbA1c (hemoglob in A1c), blood 2024 025 [facility], [address], [place], [address], 06/23/2025 11:13:35 lipid panel, serum 2024 025 [facility], [address], [place], [address], 06/23/2025 11:13:34 CMP, serum or plasma 2024 025 [facility], [address], [place], [address], 06/23/2025 11:13:35 HbA1c (hemoglob in A1c), blood 2024 025 [facility], [address], [place], [address], 02/10/2025 09:05:27 lipid panel, serum 2024 025 [facility], [address] [place] [address] 2, [place], [address], 02/10/2025 09:05:24 CMP, serum or plasma 2024 025 [facility], [address] [place] [address] 2, [place], [address], 02/10/2025 09:05:25 CBC w/ auto diff 2024 025 [facility], [address] [place] [address] 2, [place], [address], 02/10/2025 09:05:28 Referral None recorded. Procedures None recorded. Surgeries None recorded. Imaging XR, hand 2024 025 [facility], [address], [place], [address], 02/10/2025 08:21:56 Medication Orders doxycycli ne hyclate 100 mg capsule 2024 025 [email or web address] [facility] #[id number], [address], [place], [place], [id number], 09/21/2025 17:44:23 clotrimaz ole 1 % topical cream 2024 025 [facility] #[id number], [address], [place], [place], [id number], 06/21/2025 17:13:57 cephalexi n 500 mg tablet 2024 025 [facility] #[id number], [address], [place], [place], [id number], 04/16/2025 09:21:25 Patient TargetsNo targets recorded. Patient Instructions Encounter Date Encounter Id Patient Instructions Last Modified By Organization Details Last Modified Time 02/09/2025 [id number] A healthy lifestyle: care instructions [email or web address] Not available 02/09/2025 16:09:46 03/03/2025 [id number] A healthy lifestyle: care instructions [email or web address] Not available 03/03/2025 17:11:09 06/22/2025 [id number] eating healthy foods: care instructions [email or web address] Not available 06/22/2025 17:27:52 09/21/2025 [id number] A healthy lifestyle: care instructions Not available 09/21/2025 17:44:23 09/28/2025 [id number] A healthy lifestyle: care instructions [email or web address] Not available 09/28/2025 10:40:19 Reason for Referral None Reported. Results Created Date Observation Date Name Description Value Unit Range Abnormal Flag Note LastModifiedBy Organization Detail LastModifiedTime 02/10/2002/10/2025 LIPID PANEL cholesterol, total 123 mg/dL 100-19 9 Not Available [facility] ([facility]) [address] [place], [address], 02/10/2025 09:05:24 02/10/20 25 02/10/2025 LIPID PANEL triglyceride s 150 mg/dL 0-149 above high normal Not Available [facility] ([facility]) [address] [place], [address], 02/10/2025 09:05:24 02/10/20 25 02/10/2025 LIPID PANEL HDL cholesterol 57 mg/dL >39 Not Available [facility] ([facility]) [address] [place], [address], 02/10/2025 09:05:24 02/10/20 25 02/10/2025 LIPID PANEL VLDL cholesterol maggie 25 mg/dL 5-40 Not Available [facility] ([facility]) [address] [place], [address], 02/10/2025 09:05:24 02/10/20 25 02/10/2025 LIPID PANEL LDL chol calc ([facility]) 41 mg/dL 0-99 Not Available [facility] ([facility]) [address] [place], [address], 02/10/2025 09:05:24 02/10/20 25 02/10/2025 COMP. METAB OLIC PANEL (14) glucose 139 mg/dL 70-99 above high normal Not Available [facility] ([facility]) [address] [place], [address], 02/10/2025 09:05:25 02/10/20 25 02/10/2025 COMP. METAB OLIC PANEL (14) BUN 17 mg/dL 8-27 Not Available [facility] ([facility]) [address] [place], [address], 02/10/2025 09:05:25 02/10/20 25 02/10/2025 COMP. METAB OLIC PANEL (14) creatinine 0.79 mg/dL 0.76-1 .27 Not Available [facility] ([facility]) [address] [place], [address], 02/10/2025 09:05:25 02/10/20 25 02/10/2025 COMP. METAB OLIC PANEL (14) eGFR 94 mL/mi n/1.7 3 >59 Not Available [facility] ([facility]) [address] [place], [address], 02/10/2025 09:05:25 02/10/20 25 02/10/2025 COMP. METAB OLIC PANEL (14) BUN/creatini ne ratio 22 10-24 Not Available [facility] ([facility]) [address] [place], [address], 02/10/2025 09:05:25 02/10/20 25 02/10/2025 COMP. METAB OLIC PANEL (14) sodium 141 mmol/ L 134-14 4 Not Available [facility] ([facility]) [address] [place], [address], 02/10/2025 09:05:25 02/10/2002/10/2025 COMP. METAB OLIC PANEL (14) potassium 5.0 mmol/ L 3.5-5. 2 Not Available [facility] ([facility]) [address] [place], [address], 02/10/2025 09:05:25 02/10/20 25 02/10/2025 COMP. METAB OLIC PANEL (14) chloride 103 mmol/ L 96-106 Not Available [facility] ([facility]) [address] [place], [address], 02/10/2025 09:05:25 02/10/20 25 02/10/2025 COMP. METAB OLIC PANEL (14) carbon dioxide, total 24 mmol/ L 20-29 Not Available [facility] ([facility]) [address] [place], [address], 02/10/2025 09:05:25 02/10/20 25 02/10/2025 COMP. METAB OLIC PANEL (14) calcium 9.2 mg/dL 8.6-10 .2 Not Available [facility] ([facility]) [address] [place], [address], 02/10/2025 09:05:25 02/10/20 25 02/10/2025 COMP. METAB OLIC PANEL (14) protein, total 6.6 g/dL 6.0-8. 5 Not Available [facility] ([facility]) [address] [place], [address], 02/10/2025 09:05:25 02/10/20 25 02/10/2025 COMP. METAB OLIC PANEL (14) albumin 4.2 g/dL 3.8-4. 8 Not Available [facility] ([facility]) [address] [place], [address], 02/10/2025 09:05:25 02/10/20 25 02/10/2025 COMP. METAB OLIC PANEL (14) globulin, total 2.4 g/dL 1.5-4. 5 Not Available [facility] ([facility]) [address] [facility], [place], [address], 02/10/2025 09:05:25 20 25 02/10/2025 COMP. METAB OLIC PANEL (14) bilirubin, total 0.5 mg/dL 0.0-1. 2 Not Available [facility] ([facility]) [address] [place], [address], 02/10/2025 09:05:25 02/10/20 25 02/10/2025 COMP. METAB OLIC PANEL (14) alkaline phosphatase 74 IU/L 44-121 Not Available [facility] ([facility]) [address] [place], [address], 02/10/2025 09:05:25 02/10/20 25 02/10/2025 COMP. METAB OLIC PANEL (14) AST (SGOT) 28 IU/L 0-40 Not Available [facility] ([facility]) [address] [place], [address], 02/10/2025 09:05:25 02/10/2002/10/2025 COMP. METAB OLIC PANEL (14) ALT (SGPT) 27 IU/L 0-44 Not Available [facility] ([facility]) [address] [place], [address], 02/10/2025 09:05:25 02/10/2002/10/2025 HEMOG LOBIN A1C hemoglobin A1C 7.5 % 4.8-5. 6 above high normal Predi abete s: 5.7 - 6.4 Diabe oleg: >6.4 Glyce juarez contr ol for adult s with diabe oleg: <7.0 Not Available [facility] ([facility]) [address] [facility], [place], [address], 02/10/2025 09:05:27 02/10/2002/10/2025 CBC WITH DIFFE RENTI AL/PL ATELE T WBC 7.0 x10e3 /uL 3.4-10 .8 Not Available [facility] ([facility]) [address] [facility], [place], [address], 02/10/2025 09:05:28 02/10/20 25 02/10/2025 CBC WITH DIFFE RENTI AL/PL ATELE T RBC 3.97 x10e6 /uL 4.14-5 .80 below low normal Not Available [facility] ([facility]) [address] [facility], [place], [address], 02/10/2025 09:05:28 02/10/20 25 02/10/2025 CBC WITH DIFFE RENTI AL/PL ATELE T hemoglobin 12.4 g/dL 13.0-1 7.7 below low normal Not Available [facility] ([facility]) [address] [facility], [place], [address], 02/10/2025 09:05:28 02/10/2002/10/2025 CBC WITH DIFFE RENTI AL/PL ATELE T hematocrit 38.3 % 37.5-5 1.0 Not Available [facility] ([facility]) [address] [facility], [place], [address], 02/10/2025 09:05:28 02/10/20 25 02/10/2025 CBC WITH DIFFE RENTI AL/PL ATELE T MCV 97 fL 79-97 Not Available [facility] ([facility]) [address] [facility], [place], [address], 02/10/2025 09:05:28 02/10/20 25 02/10/2025 CBC WITH DIFFE RENTI AL/PL ATELE T MCH 31.2 pg 26.6-3 3.0 Not Available [facility] ([facility]) [address] [facility], [place], [address], 02/10/2025 09:05:28 02/10/2002/10/2025 CBC WITH DIFFE RENTI AL/PL ATELE T MCHC 32.4 g/dL 31.5-3 5.7 Not Available [facility] ([facility]) [address] [facility], [place], [address], 02/10/2025 09:05:28 02/10/20 25 02/10/2025 CBC WITH DIFFE RENTI AL/PL ATELE T RDW 12.4 % 11.6-1 5.4 Not Available [facility] ([facility]) [address] [facility], [place], [address], 02/10/2025 09:05:28 02/10/20 25 02/10/2025 CBC WITH DIFFE RENTI AL/PL ATELE T platelets 209 x10e3 /uL 150-45 0 Not Available [facility] ([facility]) [address] [facility], [place], [address], 02/10/2025 09:05:28 02/10/2002/10/2025 CBC WITH DIFFE RENTI AL/PL ATELE T neutrophils 58 % notest ab. Not Available [facility] ([facility]) [address] [place], [address], 02/10/2025 09:05:28 02/10/2002/10/2025 CBC WITH DIFFE RENTI AL/PL ATELE T lymphs 29 % notest ab. Not Available [facility] ([facility]) [address] [place], [address], 02/10/2025 09:05:28 02/10/20 25 02/10/2025 CBC WITH DIFFE RENTI AL/PL ATELE T monocytes 10 % notest ab. Not Available [facility] ([facility]) [address] [place], [address], 02/10/2025 09:05:28 02/10/20 25 02/10/2025 CBC WITH DIFFE RENTI AL/PL ATELE T eos 2 % notest ab. Not Available [facility] ([facility]) [address] [facility], [place], [address], 02/10/2025 09:05:28 02/10/20 25 02/10/2025 CBC WITH DIFFE RENTI AL/PL ATELE T basos 0 % notest ab. Not Available [facility] ([facility]) [address] [facility], [place], [address], 02/10/2025 09:05:28 02/10/20 25 02/10/2025 CBC WITH DIFFE RENTI AL/PL ATELE T neutrophils (absolute) 4.0 x10e3 /uL 1.4-7. 0 Not Available [facility] ([facility]) [address] [facility], [place], [address], 02/10/2025 09:05:28 02/10/20 25 02/10/2025 CBC WITH DIFFE RENTI AL/PL ATELE T lymphs (absolute) 2.0 x10e3 /uL 0.7-3. 1 Not Available [facility] ([facility]) [address] [facility], [place], [address], 02/10/2025 09:05:28 02/10/20 25 02/10/2025 CBC WITH DIFFE RENTI AL/PL ATELE T monocytes(ab solute) 0.7 x10e3 /uL 0.1-0. 9 Not Available [facility] ([facility]) [address] [place], [address], 02/10/2025 09:05:28 02/10/20 25 02/10/2025 CBC WITH DIFFE RENTI AL/PL ATELE T eos (absolute) 0.1 x10e3 /uL 0.0-0. 4 Not Available [facility] ([facility]) [address] [facility], [place], [address], 02/10/2025 09:05:28 02/10/20 25 02/10/2025 CBC WITH DIFFE RENTI AL/PL ATELE T baso (absolute) 0.0 x10e3 /uL 0.0-0. 2 Not Available [facility] ([facility]) [address] [facility], [place], [address], 02/10/2025 09:05:28 02/10/20 25 02/10/2025 CBC WITH DIFFE RENTI AL/PL ATELE T immature granulocytes 1 % notest ab. Not Available [facility] ([facility]) [address] [facility], [place], [address], 02/10/2025 09:05:28 02/10/20 25 02/10/2025 CBC WITH DIFFE RENTI AL/PL ATELE T immature grans (abs) 0.1 x10e3 /uL 0.0-0. 1 Not Available [facility] ([facility]) [address] [facility], [place], [address], 02/10/2025 09:05:28 06/22/20 25 06/23/2025 ALBUM IN/CR EATIN INE RATIO ,URIN E creatinine, urine 57.8 mg/dL notest ab. Not Available [facility] ([facility]) [address] [facility], [place], [address], 06/23/2025 11:13:33 06/22/20 25 06/23/2025 ALBUM IN/CR EATIN INE RATIO ,URIN E albumin, urine 3.1 ug/mL notest ab. Not Available [facility] ([facility]) [address] [place], [address], 06/23/2025 11:13:33 06/22/20 25 06/23/2025 ALBUM IN/CR EATIN INE RATIO ,URIN E alb/creat ratio 5 mg/g_ creat 0-29 Neha l: 0 - 29 Moder ately incre ased: 30 - 300 Sever otis incre ased: >300 Not Available [facility] ([facility]) [address] [place], [address], 06/23/2025 11:13:33 06/22/20 25 06/23/2025 LIPID PANEL cholesterol, total 142 mg/dL 100-19 9 Not Available [facility] ([facility]) [address] [place], [address], 06/23/2025 11:13:34 06/22/20 25 06/23/2025 LIPID PANEL triglyceride s 115 mg/dL 0-149 Not Available [facility] ([facility]) [address] [place], [address], 06/23/2025 11:13:34 06/22/20 25 06/23/2025 LIPID PANEL HDL cholesterol 66 mg/dL >39 Not Available [facility] ([facility]) [address] [place], [address], 06/23/2025 11:13:34 06/22/20 25 06/23/2025 LIPID PANEL VLDL cholesterol maggie 20 mg/dL 5-40 Not Available [facility] ([facility]) [address] [place], [address], 06/23/2025 11:13:34 06/22/20 25 06/23/2025 LIPID PANEL LDL chol calc ([facility]) 56 mg/dL 0-99 Not Available [facility] ([facility]) [address] [place], [address], 06/23/2025 11:13:34 06/22/20 25 06/22/2025 COMP. METAB OLIC PANEL (14) interpretati on: COMMEN T GFR estim ate at the follo wing level for >or=3 month s is class ified as follo ws: GFR WITH KIDNE Y DAMAG E WITHO UT KIDNE Y DAMAG E >or=9 0 Stage 1 Neha l 60-89 Stage 2 Decr eased GFR 30-59 Stage 3 Stage 3 15-29 Stage 4 Stage 4 <15 (or dialy sis) Stage 5 Stage 5 Estim ated GFR will over estim ate true GFR if serum creat inine is risin g as in acute renal failu re and will under estim ate true GFR if serum creat inine is decli aditya as in resol ving acute renal failu re. Addit ional infor ruel donita may be found at www.[email or web address]. org. Not Available [facility] ([facility]) [address] [place], [address], 06/23/2025 11:13:35 06/22/20 25 06/23/2025 COMP. METAB OLIC PANEL (14) glucose 100 mg/dL 70-99 above high normal Not Available [facility] ([facility]) [address] [place], [address], 06/23/2025 11:13:35 06/22/20 25 06/23/2025 COMP. METAB OLIC PANEL (14) BUN 18 mg/dL 8-27 Not Available [facility] ([facility]) [address] [place], [address], 06/23/2025 11:13:35 06/22/20 25 06/23/2025 COMP. METAB OLIC PANEL (14) creatinine 0.77 mg/dL 0.76-1 .27 Not Available [facility] ([facility]) [address] [place], [address], 06/23/2025 11:13:35 06/22/20 25 06/23/2025 COMP. METAB OLIC PANEL (14) eGFR 95 mL/mi n/1.7 3 >59 Not Available [facility] ([facility]) [address] [place], [address], 06/23/2025 11:13:35 06/22/20 25 06/23/2025 COMP. METAB OLIC PANEL (14) BUN/creatini ne ratio 23 10-24 Not Available [facility] ([facility]) [address] [facility], [place], [address], 06/23/2025 11:13:35 06/22/20 25 06/23/2025 COMP. METAB OLIC PANEL (14) sodium 139 mmol/ L 134-14 4 Not Available [facility] ([facility]) [address] [facility], [place], [address], 06/23/2025 11:13:35 06/22/20 25 06/23/2025 COMP. METAB OLIC PANEL (14) potassium 4.8 mmol/ L 3.5-5. 2 Not Available [facility] ([facility]) [address] [facility], [place], [address], 06/23/2025 11:13:35 06/22/20 25 06/23/2025 COMP. METAB OLIC PANEL (14) chloride 102 mmol/ L 96-106 Not Available [facility] ([facility]) [address] [facility], [place], [address], 06/23/2025 11:13:35 06/22/20 25 06/23/2025 COMP. METAB OLIC PANEL (14) carbon dioxide, total 23 mmol/ L 20-29 Not Available [facility] ([facility]) [address] [facility], [place], [address], 06/23/2025 11:13:35 06/22/20 25 06/23/2025 COMP. METAB OLIC PANEL (14) calcium 9.5 mg/dL 8.6-10 .2 Not Available [facility] ([facility]) [address] [place], [address], 06/23/2025 11:13:35 06/22/20 25 06/23/2025 COMP. METAB OLIC PANEL (14) protein, total 6.9 g/dL 6.0-8. 5 Not Available [facility] ([facility]) [address] [facility], [place], [address], 06/23/2025 11:13:35 06/22/20 25 06/23/2025 COMP. METAB OLIC PANEL (14) albumin 4.2 g/dL 3.8-4. 8 Not Available [facility] ([facility]) [address] [facility], [place], [address], 06/23/2025 11:13:35 06/22/20 25 06/23/2025 COMP. METAB OLIC PANEL (14) globulin, total 2.7 g/dL 1.5-4. 5 Not Available [facility] ([facility]) [address] [facility], [place], [address], 06/23/2025 11:13:35 06/22/20 25 06/23/2025 COMP. METAB OLIC PANEL (14) bilirubin, total 0.4 mg/dL 0.0-1. 2 Not Available [facility] ([facility]) [address] [facility], [place], [address], 06/23/2025 11:13:35 06/22/20 25 06/23/2025 COMP. METAB OLIC PANEL (14) alkaline phosphatase 113 IU/L 47-123 Ple ase note refer ence inter chago jane e Not Available [facility] ([facility]) [address] [facility], [place], [address], 06/23/2025 11:13:35 06/22/20 25 06/23/2025 COMP. METAB OLIC PANEL (14) AST (SGOT) 27 IU/L 0-40 Not Available [facility] ([facility]) [address] [facility], [place], [address], 06/23/2025 11:13:35 06/22/20 25 06/23/2025 COMP. METAB OLIC PANEL (14) ALT (SGPT) 21 IU/L 0-44 Not Available [facility] ([facility]) [address] [facility] [place], [address], 06/23/2025 11:13:35 06/22/2006/23/2025 HEMOG LOBIN A1C hemoglobin A1C 6.9 % 4.8-5. 6 above high normal Predi abete s: 5.7 - 6.4 Diabe oleg: >6.4 Glyce juarez contr ol for adult s with diabe oleg: <7.0 Not Available [facility] ([facility]) [address] [facility], [place], [address], 06/23/2025 11:13:35 06/22/20 25 06/23/2025 PROST ATE-S PECIF IC AG prostate specific Ag 2.2 NG/mL 0.0-4. 0 Marya ECLIA metho dolog [...] t be inter prete d as absol [place] evide nce of the prese nce or absen ce of fiona grissom se. Not Available [facility] ([facility]) [address] [facility], [place], [address], 06/23/2025 11:13:36 02/11/2002/09/2025 XR, hand No observ ation record ed. [facility] [address] [facility], [place], [address], 02/10/2025 16:57:04 Result Notes None recorded. Problems Name Problem SNOMED Code Status Onset Date Resolution Date Notes Provider Name and Address Organization Details Recorded Time Type 2 diabetes mellitus 20486097 Active 2023 Aggie Roberto MD Attn: Carl kowalski,[address] [facility], [place], [address], [place] - [facility] 4 21:03:44 Essential hypertension 22468779 Active 2023 Aggie Roberto MD Attn: Carl kowalski,[address] [facility], [place], [address], [place] [facility] 4 21:03:46 Hyperlipidemia 93501135 Active 2023 Aggie Roberto MD Attn: Carl kowalski,[address] [facility], [place], [address], [place] [facility] 4 21:03:50 Stasis dermatitis of lower limb due to chronic peripheral venous hypertension 235344541 Active 2023 Aggie Roberto MD Attn: Carl kowalski,[address] [facility], [place], [address], [place] [facility] 4 21:03:51 Gastroesophage al reflux disease without esophagitis 387713567 Active 2023 Aggie Roberto MD Attn: Carl kowalski,[address] [facility], [place], [address], [place] [facility] 4 21:03:53 Anxiety 32249322 Active 2023 Aggie Roberto MD Attn: Carl kowalski,[address] [facility], [place], [address], [place] [facility] 4 21:03:55 Problem Notes [...] Updated DateTime 5 182.88 cm 26.9 kg/m2 99312.2 9 g 82 /min 97 % 160/82 mm[Hg] Jessica Rosado [place] - [facility] 5 14:06:32 Date Recorded Body height Body mass index (BMI) Body weight Heart rate Oxygen saturation Systolic And Diastolic Provider Name and Address Organization Details Last Updated DateTime 5 182.88 cm 27.3 kg/m2 45558.1 4 g 72 /min 97 % 132/70 mm[Hg] Esperanza Fu MA [facility] 5 14:34:00 Date Recorded Body height Body mass index (BMI) Body weight Heart rate Oxygen saturation Systolic And Diastolic Provider Name and Address Organization Details Last Updated DateTime 5 182.88 cm 26.9 kg/m2 06717.4 4 g 73 /min 96 % 134/68 mm[Hg] Esperanza Fu MA [facility] 5 14:44:47 Date Recorded Body height Body mass index (BMI) Body weight Heart rate Oxygen saturation Systolic And Diastolic Provider Name and Address Organization Details Last Updated DateTime 5 182.88 cm 27.7 kg/m2 50121.4 8 g 77 /min 96 % 146/92 mm[Hg] Jessica Rosado MA [facility] 5 16:50:32 Date Recorded Body height Body mass index (BMI) Body weight Heart rate Oxygen saturation Systolic And Diastolic Provider Name and Address Organization Details Last Updated DateTime 5 182.88 cm 27.5 kg/m2 98458.6 1 g 77 /min 97 % 152/66 mm[Hg] Patricia Arvizu MA [facility] 5 09:43:16 Social History Question Answer Notes LastModified by Organizat ion Details LastModified Time Tobacco Smoking Status Former Smoker quit 15 years ago 2014 [facility] 09/21/2025 16:44:44 Do You Have An Advance [...] 7 Days, How Much Pain Have You [place]? Some Information not available 10/14/2024 In General, [...] Past 7 Days, How Often Have You [place] Sleepy In The Daytime? Rarely Information not [...] anxious, or unable to sleep at night)? [id number] Information not available 10/14/2024 Family History Relationship [...] High Blood Pressure Y Atrial Fibrillation N Kidney or Bladder Problems N Thyroid Problems N GI Problems Y Depression N COPD N Blood Clots N Have you had a mammogram in the last yea r? N Skin Problems N Anemia N Heart Attack (PR) N Anxiety Disorder Y Diabetes Y Muscle, [...] Vaccine Type Date Status Note Provider Nam stefani and Address Organization Details Recorded Time Influenza, high-dose, quadrivalent, PF 3 completed Tabitha Lizzy AJNIE null, [place] [facility] 12/19/2023 14:21:35 COVID-19, mRNA, LNP-S, PF, 30 mcg/0.3 mL dose 2 completed Tabitha Lizzy JANIE [place] [facility] 12/19/2023 14:21:35 COVID-19, mRNA, LNP-S, PF, 30 mcg/0.3 mL dose 1 completed Tabitha JANIE Ball [place], [place] [facility] 12/19/2023 14:21:35 COVID-19, mRNA, LNP-S, PF, 30 mcg/0.3 mL dose 1 completed Tabitha Ball [place] [facility] 12/19/2023 14:21:35 COVID-19, mRNA, LNP-S, PF, lee-sucrose, 30 mcg/0.3 mL 3 completed Tabitha Ball MA álvaro, [place] - [facility] 12/19/2023 14:21:35 Td (adult), [...] 09:43:21 Influenza, high-dose, trivalent, PF 4 completed Jessica Rosado MA null, [place] - [facility] 02/09/2025 09:43:21 Pneumococcal conjugate PCV20, polysaccharide OTE550 conjugate, adjuvant, PF 5 completed Aggie Roberto MD Attn: Accounting,[address] [facility] [facility], [place], [address], [facility] - [facility] 10/18/2024 21:08:33 Past Encounters Encounter ID Performer Location Encounter Start Date Encounter Closed Date Diagnosis/Indication Diagnosis SNOMED-CT Code Diagnosis ICD10 Code Diagnosis IMO Codes Diagnosis Note [id number] MD [facility] (Adult Med) [address] [place] [address] [id number] 0 12/19/2023 14:11:42 12/19/2023 15:50:00 Type 2 diabetes mellitus 70277200 E11.9 Essential hypertension 36749785 I10 Hyperlipidemia 83959564 E78.5 Stasis mahi matitis of lower limb due to chronic peripheral venous hypertension 827377976 I87.399 Gastroesop hageal reflux disease without esophagitis 575771468 K21.9 Anxiety 60888159 F41.9 [id number] Aggie Roberto MD [facility] (Adult Med) [address] [place] [address] [id number] 0 04/15/2024 13:46:57 04/15/2024 14:33:15 Overweight 707310776 E66.3 Type 2 zandra betes mellitus 38621858 E11.9 Essential hypertension 55471483 I10 Hyperlipidemia 21114339 E78.5 Screening for malignant neoplasm of prostate 846330216 Z12.5 Gastroesop hageal reflux disease without esophagitis 511392630 K21.9 Stasis mahi matitis of lower limb due to chronic peripheral venous hypertension 580908844 I87.399 Anxiety 39397083 F41.9 [id number] Aggie Roberto MD [facility] (Adult Med) [address] [place] [address] 94140-022 0 10/14/2024 13:48:38 10/14/2024 14:56:36 Body mass index 25-29 - overweight 820001553 Z68.28 Overweight 472220387 E66 .3 Adult [facility] examination 322335495 Z00.00 Health Risk Assessment collected and reviewed Essential hypertension 81789668 I10 Type 2 zandra betes mellitus 66009583 E11.9 Screening for malignant neoplasm of colon 065891613 Z12.11 Administra tion of pneumococcal vaccine 43449382 Z23 Anxiety 54276777 F41.9 Gastroesop hageal reflux disease without esophagitis 883617334 K21.9 Hyperlipidemia 06815244 E78.5 Stasis mahi matitis of lower limb due to chronic peripheral venous hypertension 777366477 I87.501 [id number] [facility] [address] [place] [address] [id number] 0 02/09/2025 13:53:03 02/09/2025 14:45:11 Overweight in adulthood with body mass index of 25 or more but less than 30 646240877 Z68.26 982440 Overweight 987398457 E66 .3 Essential hypertension 81552978 I10 Pain of left hand 877944 0979 45163 M79.642 879318 Type 2 zandra betes mellitus 56027887 E11.9 Hyperlipidemia 79838763 E78.5 Anxiety 07759984 F41.9 Gastroesop hageal reflux disease without esophagitis 017347653 K21.9 Stasis mahi matitis of lower limb due to chronic peripheral venous hypertension 406065112 I87.487 [id number] Aggie Roberto MD [facility] (Adult Med) [address] [place] [address] [id number] 0 03/03/2025 14:09:40 03/03/2025 14:59:01 Overweight in adulthood with body mass index of 25 or more but less than 30 609583987 E66.3 Z68.27 [id number] [facility] [place] [id number] Aggie Roberto MD [facility] (Adult Med) [address] [place] [address] [id number] 0 06/22/2025 14:15:46 06/22/2025 15:08:28 Overweight in adulthood with body mass index of 25 or more but less than 30 911755467 E66.3 Z68.26 1232326528 BMI 26.9 Essential hypertension 59873602 I10 Hyperlipidemia 80298751 E78.5 Type 2 zandra betes mellitus 18974127 E11.9 Screening for malignant neoplasm of prostate 163647289 Z12.5 964519 Anxiety 98323638 F41.9 Gastroesop hageal reflux disease without esophagitis 963410368 K21.9 Stasis mahi matitis of lower limb due to chronic peripheral venous hypertension 305418451 I87.987 [id number] MD [facility] (Adult Med) [address] [place] [address] [id number] 0 09/21/2025 16:36:38 09/21/2025 17:08:22 Overweight in adulthood with body mass index of 25 or more but less than 30 416033942 Z68.26 084756 BMI 26.9 Cellulitis of right lower limb 6047423462 3246370 L03.115 [id number] MD [facility] (Adult Med) [address] [place] [address] [id number] 0 09/28/2025 09:34:02 09/28/2025 10:12:44 Overweight in adulthood with body mass index of 25 or more but less than 30 084535824 Z68.27 [id number] [facility] 683508384 R21 171473 Health Concerns Section Related Observation LastModified by Organization Detai ls LastModified Time None Recorded Concern Status LastModified by Organization Details LastModified Time None Recorded Advance Directives Directive Y: Payers Insurance Date Sequence Insurance Name Policy Number Policy Dunham Covered Member ID Dunham Member ID Guarantor Name 09/27/2025 1 [facility] (MEDICARE REPLACEMENT/A DVANTAGE - HMO) [id number] Surendra Mitchell [id number] Surendra Mitchell Notes Date Note Type Note [...] really tried to take anything for it gyen-jn-gcgwpuky pain Jessica Rosado MA null, [place] - [facility] 02/11/2025 12:24:07 03/03/2025 text/html Rash lower right leg for a week or 2 he is not really sure no bites that he is aware of he has not been out in the [place] but he does not golf quite a bit so he is not sure if he got into something looking for a golf ball Aggie Roberto MD Attn: Accounting, [address] [facility], [place], [address], [facility] - [facility] 03/14/2025 16:24:55 06/22/2025 text/html Follow up on medical problems he does not wear the compression socks like he should. There has been no hypoglycemic spells anxiety has been doing fine no GERD flare-ups his rhinitis is doing fine on the montelukast Aggie Roberto MD Attn: Accounting, 1 [place], [address], [facility] - [facility] 07/18/2025 15:13:09 09/21/2025 text/html Acute appointment redness right lower extremity he has had this before the triamcinolone not really helping no fever chills no trauma Aggie Roberto MD Attn: Accounting, [address] [facility], [place], [address], [facility] - [facility] 09/21/2025 22:03:51 09/28/2025 text/html Short interval follow up on leg he thinks maybe a little bit better no fever no chills Aggie Roberto MD Attn: Accounting, [address] [facility], [place], [address], [place] - [facility] 09/28/2025 13:10:57
--- OUTSIDE RECORDS SUMMARY | 2025-10-01 12:58 | XMS_ITS | Continuity of Care Document ---
Author Organization [place] - [facility], [facility] Pod[facility] [place] Address [address] [facility] [address] [place] [address] Assessment Encounter Date Assessment Date Assessment LastModified by Organization Details LastModified Time 09/14/2025 09/14/2025 This note is dictated and transcribed by [employer]. Electronics Technician variances may occur. Despite proofreading, typographical errors may occur. Occasional wrong-word or 'jbjuv-a-rlcb' substitutions may have occurred due to the inherent limitations of voice recording. Read the chart carefully and recognize, using context, where substitutions have occurred. [email or web address] Not available 09/15/2025 10:52:20 Plan of Treatment Reminders Order Date Submit Date Provider Last Modified By Organization Details Last Modified Time Details Appointments Establish ed Patient 15 2025 02:30P Janina Torres DPM Not available Not available Not available Lab None recorded. Referral None recorded. Procedures None recorded. Surgeries None recorded. Imaging None recorded. Medication Orders None recorded. Patient TargetsNo targets recorded. Patient InstructionsNo instructions recorded. Reason for Referral None Reported. Problems Name Problem SNOMED Code Status Onset Date Resolution Date Notes Provider Name and Address Organization Details Recorded Time Disorder of lower limb 166216059 Active Not Available [facility] 3 01:14:50 Benign essential hypertens ion 0116983 Active Not Available [facility] 3 01:14:50 Abdominal pain 32584991 Completed Not Available [facility] 3 01:14:50 Gastroeso phageal reflux disease 959049696 Active Not Available [facility] 3 01:14:50 Eruption 254835512 Completed Not Available [facility] 01:14:50 Type 2 diabetes mellitus without complicat ion 226968989 Active Not Available [facility] 3 01:14:50 Venous stasis 77839926 Active Not Available [facility] 3 01:14:51 Pain in limb 50228709 Active Not Available [facility] 3 01:14:51 Lesion of skin of face 07421733462 6 Active 2017 Not Available [facility] 3 01:14:50 Rhinitis 33914210 Active 2017 Not Available [facility] 3 01:14:51 Anxiety 53297511 Active 2018 Not Available [facility] 3 01:14:51 Dyslipide johnson 276448042 Active 2020 Not Available [facility] 3 01:14:51 Ecchymosi s 140542000 Active 2022 Yash Roberto MD [address], [address], [place], [address] , [facility] 3 11:15:54 Open wound of left foot 63069354623 387165 Active 2022 Ekta Smith MA null, [facility] 3 11:23:18 Puncture wound of foot 37002430 Active 2022 Ekta Smith MA null, [facility] 3 11:24:00 Benign prostatic hyperplas ia with outflow obstructi on 124172980 Active 2022 Faith Metcalf MA null, [facility] 3 14:35:52 Type 2 diabetes mellitus 05136464 Active 2024 Santy Torres DPM [address], [address], [place], [address] , [facility] [employer] [facility] 5 16:59:31 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 Procedures Surgical History Date Name Laterality Status Provider Name and Address Organization Details Recorded Time 09/14/20 25 Nail Debridement completed Santy Torres DPM [address], [place], [address], [facility] [employer] [facility] 09/15/2025 10:51:44 06/15/20 25 Nail Debridement completed Santy Torres DPM [address], [place], [address], [employer] [facility] 06/16/2025 13:39:06 03/16/20 25 Nail Debridement completed Santy Torres DPM [address], [address], [place], [address], [employer] [facility] [employer] 03/16/2025 16:58:02 11/10/19 25 Nail Debridement completed Paulo Chamberlain DPM [address], [place], [address], [employer] [facility] [employer] 11/23/2024 09:58:59 10/25/19 17 Colonoscopy completed Not Available [facility] 12/06/19 23 00:59:49 Imaging Results None recorded. [...] Not Available Not Avai lable cephalexi n 500 mg tablet TAKE 1 TABLET BY MOUTH THREE TIMES DAILY FOR 7 DAYS active Not Available Not Available No t Available montel[address] 10 mg tablet TAKE 1 [...] e 50 mcg/actua tion nasal spray,[employer] [place] 2 sprays every day by intranas al route. active Not Available Not Available No t Available clotrimaz ole 1 % topical cream APPLY TOPICALL Y TO RASH TWICE DAILY FOR 2 WEEKS active Not Available Not Available No [...] (BMI) Body weight Heart rate Oxygen saturation Body temperature Systolic And Diastolic Provider Name and Address Organization Details Last Updated DateTime 5 180.34 cm 27.9 kg/m2 76938.4 7 g 82 /min 96 % 98.1 [degF] 135/80 mm[Hg] Arian GuerraCHIN [place] - [facility] 5 15:03:51 Social History Question Answer Notes LastModified by Organizat ion Details LastModified Time Tobacco Smoking Status Former Smoker quit 2011 Not Available [facility] 12/05/2022 00:58:41 Do You Have An Advance Directive? No MIGRATION.00814 02601 Information not available 12/05/2022 Are You Blind Or Do You Have Difficulty Seeing? No MIGRATION.05104 34791 Information not available 12/05/2022 What Is Your Level Of Caffeine Consumption? Moderate MIGRATION.64545 10714 Information not available 12/05/2022 How Much Tobacco Do You Chew? None MIGRATION.20721 64668 Information not available 12/05/2022 In The 14 Days Before Symptom Onset, Have You Had Close Contact With A Laboratory-confi rmed COVID-19 While That Case Was Ill? No MIGRATION.74211 50844 Information not available 12/05/2022 In The 14 Days Before Symptom Onset, Have You Had Close Contact With A Person Who Is Under Investigation For COVID-19 While That Person Was Ill? No MIGRATION.38448 60603 Information not available 12/05/2022 Are You Deaf Or Do You Have Serious Difficulty Hearing? No MIGRATION.69709 29749 Information not available 12/05/2022 What Type Of Diet Are You Following? REGULAR MIGRATION.09877 79696 Information not available 12/05/2022 Which Illicit Or Recreational Drugs Have You Used? None MIGRATION.84168 17143 Information not available 12/05/2022 What Is The Highest Grade Or Level Of School You Have Completed Or The Highest Degree You Have Received? MK54258-3 MIGRATION.96294 91455 Information not available 12/05/2022 Have There Been Any Changes To Your Family Or Social Situation? No MIGRATION.20678 17815 Information not available 12/05/2022 What Is The Fluoride Status Of Your Home? Unknown MIGRATION.19068 72751 Information not available 12/05/2022 When Did You Quit Smoking? 6-10yearssincelast cigarette MIGRATION.61313 49728 Information not available 12/05/2022 Are There Any Guns Present In Your Home? No MIGRATION.95063 54705 Information not available 12/05/2022 Do You Use Insect Repellent Routinely? No MIGRATION.18119 77536 Information not available 12/05/2022 [facility] MIGR[facility].42780 35071 Information not available 12/05/2022 Do You Have A Medical Power Of Station Repairer? Yes MIGRATION.38883 73532 Information not available 12/05/2022 What Was The Date Of Your Most Recent Tobacco Screening? 09/14/2025 [email or web address] Information not available 09/14/2025 Have You Ever Been Counseled For Unhealthy Alcohol Use? No MIGRATION.47065 59450 Information not available 12/05/2022 Do You Have Any Pets? Yes MIGRATION.16878 84563 Information not available 12/05/2022 What Is Your Relationship Status? MIGRATION.26694 69197 Information not available 12/05/2022 Do You Use Your Seat Belt Or Car Seat Routinely? Yes MIGRATION.62810 51811 Information not available 12/05/2022 Do You Have Smoke And Carbon Monoxide Detectors In Your Home? Yes MIGRATION.96744 59175 Information not available 12/05/2022 Are You Passively Exposed To Smoke? No MIGRATION.09807 89831 Information not available 12/05/2022 Are There Any Smokers In Your House? No MIGRATION.16052 16508 Information not available 12/05/2022 How Much Tobacco Do You Smoke? No MIGRATION.40311 10322 Information not available 12/05/2022 What Types Of Sporting Activities Do You Participate In? None MIGRATION.83127 66561 Information not available 12/05/2022 Do You Use Sunscreen Routinely? Yes MIGRATION.55016 84885 Information not available 12/05/2022 Has Tobacco Cessation Counseling Been Provided? No MIGRATION.89836 90544 Information not available 12/05/2022 Have You Recently Traveled Abroad? No MIGRATION.52938 48934 Information not available 12/05/2022 Do You Have Difficulty Walking Or Climbing Stairs? No MIGRATION.33677 67555 Information not available 12/05/2022 Do You Have Any Dietary Restrictions? No MIGRATION.22201 45661 Information not available 12/05/2022 Sex: Male Functional Status Question Answer Note LastModified by Organizat ion Details LastModified Time Do you use any illicit or recreational drugs? No MIGRATION.156514 8024 Information not available 12/05/2022 Do you or have you ever used any other forms of tobacco or nicotine? No MIGRATION.561032 3384 Information not available 12/05/2022 What is your level of alcohol consumption? Occasional MIGRATION.576507 8309 Information not available 12/05/2022 Do you or have you ever used smokeless tobacco? Never used smokeless tobacco MIGRATION.199897 7568 Information not available 12/05/2022 Do you have transportation difficulties? No MIGRATION.482610 2765 Information not available 12/05/2022 Are you able to walk independently without assistance or assistive devices? YESWOREST MIGRATION.719047 7886 Information not available 12/05/2022 Do you have difficulty doing errands alone? No MIGRATION.519163 2427 Information not available 12/05/2022 Are you able to care for yourself independently? Yes MIGRATION.059094 6962 Information not available 12/05/2022 What is your occupation? retired MIGRATION.790802 0417 Information not available 12/05/2022 Do you have difficulty dressing, bathing, grooming, or toileting? No MIGRATION.631489 4288 Information not available 12/05/2022 Do you or have you ever used e-cigarettes or vape? Never used electronic cigarettes MIGRATION.041657 9014 Information not available 12/05/2022 What is your exercise level? Moderate MIGRATION.417905 3580 Information not available 12/05/2022 Mental Status Question Answer Note LastModified by Organizat ion Details LastModified Time Do you feel stressed (tense, restless, nervous, or anxious, or unable to sleep at night)? [id number] MIGRATION.72659390 26 Information not available 12/05/2022 Do you have difficulty concentrating, remembering or making decisions? No MIGRATION.21593234 26 Information not available 12/05/2022 Family History Relationship Description Onset Age of this Age Resolved Age Notes LastModified by Organization Details LastModified Time Sister Diabetes mellitus MIGRATION.443 4219720 Not available 12/05/2022 01:00:00 Sister Hypertensive disorder MIGRATION.388 3803931 Not available 12/05/2022 01:00:00 Brother Disease of liver MIGRATION.495 7612240 Not available 12/05/2022 01:00:00 Father Diabetes mellitus MIGRATION.143 5867019 Not available 12/05/2022 01:00:00 Father Heart disease MIGRATION.882 9426415 Not available 12/05/2022 01:00:00 Father Hypertensive disorder MIGRATION.041 0540787 Not available 12/05/2022 01:00:00 Father Carcinoma of prostate MIGRATION.261 1196500 Not available 12/05/2022 01:00:00 Mother Hypertensive disorder MIGRATION.681 5250203 Not available 12/05/2022 01:00:00 Medical History Condition Response NERVE DISEASE Y BLINDNESS N RHEUMATIC FEVER N KIDNEY STONES N BLADDER PROBLEMS N MRSA N OTHER # 1 Y POLIO N LUNG DISEASE/DISORDER N RADIATION / CHEMOTHERAPY N COPD N Other # 2 N BLOOD DISEASES N EAR OR HEARING PROBLEMS N MUMPS N BOWEL PROBLEMS N DEPRESSION (INCLUDING POST ) N STROKE/TIA N ULCERS N BENIGN PROSTATIC HYPERPLASIA N MEASLES N MYOCARDIAL INFARCTION N OBESITY N GERD/NAUSEA Y ANEURYSM N URINARY/BLADDER/KIDNEY PROBLEMS N CORONARY ARTERY DISEASE (CAD) N ADDICTION CONCERNS N ENDOMETRIOSIS N Impotence N USE OF BLOOD THINNERS N SKIN [...] APNEA N CHICKENPOX N INFECTIOUS DISEASE N HEART ARRHYTHMIA N PROSTATE N INSOMNIA N HIGH CHOLESTEROL / HYPERLIPIDEMIA Y HYPERTHYROIDISM N EYE PROBLEMS N EDEMA N CHRONIC PAIN SYNDROME N HYPOTHYROIDISM N CAROTID BLOCKAGE Y CONSTIPATION N BACK / NECK PROBLEMS N HAVE YOU BEEN HOSPITALIZED OR SEEN IN [facility] IN THE PAST YEAR ? N ATHEROSCLEROSIS N BREAST PROBLEMS N DIALYSIS N ECZEMA N OSTEOPOROSIS Y ARTHRITIS Y APPENDICITIS N DIABETES, TYPE Y BAD TEETH N ENT N HEARTBURN / REFLUX N AUTISM SPECTRUM DISORDER (ASD) N HEPATITIS / LIVER DISEASE N GOUT N SLEEP DISORDER Y ALZHEIMER'S DISEASE N Brain Problems N HERPES N DEMENTIA N HEADACHES/MIGRAINES N SEIZURES/EPILEPSY N VASCULAR DISEASE Y PACEMAKER N Blood Disorder N DIZZINESS N HEART DISEASE/HEART PROBLEMS N KIDNEY DISEASE N MULTIPLE SCLEROSIS N CARDIAC ARRHYTHMIA N CANCER: SPECIFY N ATRIAL FIBRILLATION N Gall Stones N PULMONARY EMBOLISM N AUTOIMMUNE DISEASE N Immunizations Vaccine Type Date Status Note Provider Nam e and Address Organization Details Recorded Time Td (adult), 5 Lf tetanus toxoid, preservative free, adsorbed 3 completed Loraine Chaparro RN [facility], [facility] 05/10/2023 14:02:00 Past Encounters Encounter ID Performer Location Encounter Start Date Encounter Closed Date Diagnosis/Indication Diagnosis SNOMED-CT Code Diagnosis ICD10 Code Diagnosis IMO Codes Diagnosis Note [id number] Santy Torres DPM [facility] [place] [address] [facility] [address] [place] [address] 09/14/2025 14:55:17 09/16/2025 16:05:15 Type 2 diabetes mellitus without complication 009431203 E11.9 Patient educated on neuropathy , diabetes, diabetic diet, and daily foot exams. Patient is to check feet daily for new wounds, blisters, redness to prevent infection and ulceration s to the feet. Patient will return to clinic in 3 months for diabetic foot workup. Dystrophia unguium 97621 009 L60.3 1009 Nails 1 through 10 were debrided with sharp mechanical debridemen t without incident. Nails were debrided and greater than 50% length and thickness where needed. Health Concerns Section Related Observation LastModified by Organization Detai ls LastModified Time None Recorded Concern Status LastModified by Organization Details LastModified Time None Recorded Payers Encounter Date Sequence Insurance Name Policy Number Policy Dunham Covered Member ID Dunham Member ID Guarantor Name 09/14/[address] [facility] (MEDICARE REPLACEMENT/A DVANTAGE - HMO) [id number] Surendra Mitchell [id number] Surendra Mitchell Notes Date Note Type Note Provider Name and Address Organization Details Recorded Time 09/14/2025 text/html DM/nail trim/ Dr Roberto. Patient is a 75-year-old male who returns the office for diabetic foot care. Patient states overall he is doing well he denies any open wounds or injury of the foot. Patient denies any pain or intermittent claudication. Patient states he would like his nails cut. Santy Torres DPM [address] [facility], [address], [place], [address], [facility] 09/15/2025 10:52:33
--- OUTSIDE RECORDS SUMMARY | 2025-10-01 12:58 | XMS_ITS | Clinical Summary ---
Author Organization [facility] [place] Address [facility] [place] [address] Care Team Providers Care Buckram Sewer Name Role Phone Yash Roberto MD Primary [...] treatment in past. 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 I will obtain a Yadkin's DNA screening and see him back thereafter. Surgical History Surgery Date Site/Laterality Comments ORAL SURGERY Medical History Medical History Date Comments Diabetes Depression Hypertension High cholesterol Family History Medical [...] (1 - Tdap) 05/11/2023 Influenza Vaccine (#1) 2025 [place] [address] [facility] MEDICARE ADVANTAGE [facility] MEDICARE ADVANTAGE Care Teams Buckram Sewer Relationship Specialty Start Date End Date Yash Roberto MD PCP - General Internal Medicine 02/01/21
--- OUTSIDE RECORDS SUMMARY | 2025-10-01 12:58 | XMS_ITS | Continuity of Care Document ---
Author Organization [facility] Address [address] [place] [phone] Care Team Providers Care Mobile Electronics Installer Name Role Phone YASH ROBERTO Primary Care Provider YASH MAZARIEGOS Neurologist RAMON RODRIGUEZ Urologist Assessment Encounter Date Assessment Date Assessment LastModified by Organization Details LastModified Time 09/28/2025 09/28/2025 Eruption Query whether or not this could be fungal as well. finish the doxycycline start some Lotrimin cream [id number] er keep his appointment with me October 08 [email or web address] Not available 09/28/2025 13:08:18 Plan of Treatment Reminders Order Date Submit Date Provider Last Modified By Organization Details Last Modified Time Details Appointments ANY 15 026 10:30AM Yash Roberto MD Not available Not available Not available Lab None record ed. Referral None record ed. Procedures None record ed. Surgeries None record ed. Imaging None record ed. Medication Orders None record ed. Patient TargetsNo targets recorded. Patient Instructions Encounter Date Encounter Id Patient Instructions Last Modified By Organization Details Last Modified Time 09/28/2025 [id number] A healthy lifestyle: care instructions Not available 09/28/2025 10:40:19 Reason for Referral None Reported. Problems Name Problem SNOMED Code Status Onset Date Resolution Date Notes Provider Name and Address Organization Details Recorded Time Type 2 diabetes mellitus 04576066 Active 2023 Yash Roberto MD Attn: Carl g,[address] [facility], [place], [address] [place] [address] 03/14/202 4 21:03:44 Essential hypertension 62578439 Active 2023 Yash Roberto MD Attn: Carl kowalski,[address] [facility], [place], [address], [place] - [facility] 4 21:03:46 Hyperlipidemia 83757557 Active 2023 Yash Roberto MD Attn: Carl kowalski,[address] [facility], [place], [address], [place] [facility] 4 21:03:50 Stasis dermatitis of lower limb due to chronic peripheral venous hypertension 708008690 Active 2023 Yash Roberto MD Attn: Carl kowalski,[address] [place], [address], [place] [facility] 4 21:03:51 Gastroesophage al reflux disease without esophagitis 082859327 Active 2023 Yash Roberto MD Attn: Carl kowalski,[address] [place], [address], [place] [facility] 4 21:03:53 Anxiety 84755928 Active 2023 Yash Roberto MD Attn: Carl kowalski,[address] [facility], [place], [address], [place] [facility] 4 21:03:55 Problem [...] Organization Details Last Updated DateTime 182.88 cm 27.5 kg/m2 93792.6 1 g 77 /min 97 % 152/66 mm[Hg] Patricia Arvizu MA [facility] 09:43:16 Social History Question Answer Notes LastModified by Organizat ion Details LastModified Time Tobacco Smoking Status Former Smoker quit 15 years ago 2014 Jessica Rosado [place] null, [place] - [facility] 09/21/2025 16:44:44 Do You [...] 7 Days, How Much Pain Have You [place]? Some Information not available 10/14/2024 In General, [...] Past 7 Days, How Often Have You [place] Sleepy In The Daytime? Rarely Information not [...] anxious, or unable to sleep at night)? [id number] Information not available 10/14/2024 Family History Relationship [...] Skin Problems N Anemia N Heart Attack (MD) N Anxiety Disorder Y Diabetes Y Muscle, [...] 14:21:35 influenza, unspecified formulation 4 completed JANIE Glaser [place] - [facility] 02/09/2025 09:43:21 COVID-19, mRNA, LNP-S, PF, 30 mcg/0.3 mL dose 4 completed JANIE [place] [facility] 02/09/2025 09:43:21 RSV, recombinant, protein subunit RSVpreF, adjuvant reconstituted, 0.5 mL, PF 4 completed Jessica [place], [place] [facility] 02/09/2025 09:43:21 COVID-19, mRNA, LNP-S, PF, lee-sucrose, 30 mcg/0.3 mL 4 completed Jessica Ros[place], [place] [facility] 02/09/2025 09:43:21 Influenza, high-dose, trivalent, PF 4 completed Jessiac oRsado [place], [place] [facility] 02/09/2025 09:43:21 Pneumococcal conjugate PCV20, polysaccharide [id number] conjugate, adjuvant, PF 5 completed Yash Roberto MD Attn: Accounting,[address] [place], [address], [place] [facility] 10/18/2024 21:08:33 Past Encounters Encounter ID Performer Location Encounter Start Date Encounter Closed Date Diagnosis/Indication Diagnosis SNOMED-CT Code Diagnosis ICD10 Code Diagnosis IMO Codes Diagnosis Note [id number] Yash Roberto MD [facility] (Adult Med) [address] [place] [phone] 09/21/2025 16:36:38 09/21/2025 17:08:22 Overweight in adulthood with body mass index of 25 or more but less than 30 930262610 Z68.26 199863 BMI 26.9 Cellulitis of right lower limb 6732958471 3130805 L03.115 [id number] Yash Roberto MD [facility] (Adult Med) [address] [place] [phone] 09/28/2025 09:34:02 09/28/2025 10:12:44 Overweight in adulthood with body mass index of 25 or more but less than 30 193070360 Z68.27 [id number] [facility] [id number] [id number] Health Concerns Section Related Observation LastModified by Organization Detai ls LastModified Time None Recorded Concern Status LastModified by Organization Details LastModified Time None Recorded Payers Encounter Date Sequence Insurance Name Policy Number Policy Dun[place] Covered Member ID Dun[place] Member ID Guarantor Name 09/28/2025 1 [facility] (MEDICARE REPLACEMENT/A DVANTAGE - HMO) [id number] Surendra Mitchell [id number] Surendra Mitchell Notes Date Note Type Note Provider Name and Address Organization Details Recorded Time 09/28/2025 text/html Short interval follow up on leg he thinks maybe a little bit better no fever no chills Yash Roberto MD Attn: Accounting,[address] [facility], [place], [address], [facility] 09/28/2025 13:10:57
--- OUTSIDE RECORDS SUMMARY | 2025-10-01 12:59 | XMS_ITS | Data Portability ---
Author Organization [place] - [facility] [employer], Main Office Address [address] [place] [address] Assessment Encounter Date Assessment Date Assessment LastModified by Organization Details LastModified Time 09/23/2023 09/23/2023 Continue current therapy will monitor the chest wall pain again is markedly better his other medical problems appear to be doing fine his blood work been reviewed no side effects from medication follow-up 4 months. Great reduction in A1c [id number] Not available 09/23/2023 22:01:09 03/16/2025 03/16/2025 This note is dictated and transcribed by [employer]. Instructional Leader variances may occur. Despite proofreading, typographical errors may occur. Occasional wrong-word or 'syemk-v-foqn' substitutions may have occurred due to the inherent limitations of voice recording. Read the chart carefully and recognize, using context, where substitutions have occurred. Not available 03/16/2025 16:59:05 06/15/2025 06/15/2025 This note is dictated and transcribed by [employer]. Instructional Leader variances may occur. Despite proofreading, typographical errors may occur. Occasional wrong-word or 'cfsiw-f-zeqk' substitutions may have occurred due to the inherent limitations of voice recording. Read the chart carefully and recognize, using context, where substitutions have occurred. Not available 06/16/2025 13:38:09 09/14/2025 09/14/2025 This note is dictated and transcribed by [employer]. Instructional Leader variances may occur. Despite proofreading, typographical errors may occur. Occasional wrong-word or 'dlnpy-n-gkso' substitutions may have occurred due to the inherent limitations of voice recording. Read the chart carefully and recognize, using context, where substitutions have occurred. Not available 09/15/2025 10:52:20 Plan of Treatment Reminders Order Date Submit Date Provider Last Modified By Organization Details Last Modified Time Details Appointments Establish ed Patient 15 2025 02:30P M Santy Torres DPM Not available Not [...] Details Recorded Time Disorder of lower limb 592479179 Active Not Available [facility] 3 01:14:50 Benign essential hypertens ion 1295182 Active Not Available [facility] 3 01:14:50 Abdominal pain 41458752 Completed Not Available [facility] 3 01:14:50 Gastroeso phageal reflux disease 559632498 Active Not Available [facility] 3 01:14:50 Eruption 321548903 Completed Not Available [facility] 3 01:14:50 Type 2 diabetes mellitus without complicat ion 827194219 Active Not Available [facility] 3 01:14:50 Venous stasis 90184304 Active Not Available [facility] 3 01:14:51 Pain in limb 49461409 Active Not Available [facility] 3 01:14:51 Lesion of skin of face 23652460294 6 Active 2017 Not Available [facility] 3 01:14:50 Rhinitis 43437190 Active 2017 Not Available [facility] 3 01:14:51 Anxiety 41351512 Active 2018 Not Available [facility] 3 01:14:51 Dyslipide johnson 845616375 Active 2020 Not Available [facility] 3 01:14:51 Ecchymosi s 827683320 Active 2022 Yash Roberto MD [address] [place] [address], [place] [address], [place], [address] , [facility] 3 11:15:54 Open wound of left foot 85824137465 031605 Active 2022 Ekta Smith MA null, [facility] 3 11:23:18 Puncture wound of foot 29173606 Active 2022 Ekta Smith MA null, [facility] 3 11:24:00 Benign prostatic hyperplas ia with outflow obstructi on 864455600 Active 2022 Faith Metcalf MA null, [facility] 3 14:35:52 Type 2 diabetes mellitus 24056678 Active 2024 Santy Torres DPM [address], [address], [place], [address] , 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 5 16:59:48 Problem Notes None recorded. Procedures Surgical History Date Name Laterality Status Provider Name and Address Organization Details Recorded Time 09/14/20 25 Nail Debridement completed Santy Torres DPM [address], [address], [place], [address], [facility] 09/15/2025 10:51:44 06/15/20 25 Nail Debridement completed Santy Torres DPM [address], [address], [place], [address], [facility] 06/16/2025 13:39:06 03/16/20 25 Nail Debridement completed Santy Torres DPM [address], [address], [place], [address], [facility] 03/16/2025 16:58:02 11/10/19 25 Nail Debridement completed Paulo Chamberlain DPM [address], [address], [place], [address], [place] [facility] 11/23/2024 09:58:59 10/25/19 17 Colonoscopy completed Not Available [facility] 12/06/19 23 00:59:49 Imaging Results None recorded. [...] e 50 mcg/actua tion nasal spray,[employer] [place] 2 sprays every day by intranas al [...] No t Available Vitals Date Recorded Body weight Oxygen saturation Body temperature Heart rate Provider Name and Address Organization Details Last Updated DateTime 11/10/2024 27275.07 g 98 % 98.4 [degF] 84 /min Arian Guerra [facility] [employer] [facility] [employer] 11/10/2024 15:09:27 Date Recorded Oxygen saturation Body temperature Body height Body mass index (BMI) Body weight Heart rate Systolic And Diastolic Provider Name and Address Organization Details Last Updated DateTime 5 94 % 98.2 [degF] 180.34 cm 27.9 kg/m2 92661.4 7 g 75 /min 149/79 mm[Hg] Arian Guerra Deanna [employer] [facility] [employer] [facility] 5 16:41:30 Date Recorded Body height Body mass index (BMI) Body weight Heart rate Respiratory rate Oxygen saturation Systolic And Diastolic Provider Name and Address Organization Details Last Updated DateTime 5 180.34 cm 27.9 kg/m2 74548.4 7 g 76 /min 14 /min 98 % 168/79 mm[Hg] Britney Christopher [employer] [facility] [employer] 5 16:37:09 Date Recorded Body height Body mass index (BMI) Body weight Heart rate Oxygen saturation Body temperature Systolic And Diastolic Provider Name and Address Organization Details Last Updated DateTime 5 180.34 cm 27.9 kg/m2 83812.4 7 g 82 /min 96 % 98.1 [degF] 135/80 mm[Hg] Arian Guerra [facility] [employer] [facility] 5 15:03:51 Date Recorded Body height Body mass index (BMI) Body weight Body temperature Heart rate Oxygen saturation Systolic And Diastolic Provider Name and Address Organization Details Last Updated DateTime 3 180.34 cm 28.2 kg/m2 45440.6 6 g 97.9 [degF] 80 /min 96 % 152/70 mm[Hg] Fidelia zapien CMA [employer] [facility] [employer] [facility] 3 12:09:45 Social History Question Answer Notes LastModified by Organizat ion Details LastModified Time Tobacco Smoking Status Former Smoker quit 2011 Not Available [facility] 12/05/2022 00:58:41 Do You Have An Advance Directive? No MIGRATION.07194 07061 Information not available 12/05/2022 Are You Blind Or Do You Have Difficulty Seeing? No MIGRATION.89797 55616 Information not available 12/05/2022 What Is Your Level Of Caffeine Consumption? Moderate MIGRATION.87819 08248 Information not available 12/05/2022 How Much Tobacco Do You Chew? None MIGRATION.95233 16569 Information not available 12/05/2022 In The 14 Days Before Symptom Onset, Have You Had Close Contact With A Laboratory-confi rmed COVID-19 While That Case Was Ill? No MIGRATION.11488 29462 Information not available 12/05/2022 In The 14 Days Before Symptom Onset, Have You Had Close Contact With A Person Who Is Under Investigation For COVID-19 While That Person Was Ill? No MIGRATION.12367 80723 Information not available 12/05/2022 Are You Deaf Or Do You Have Serious Difficulty Hearing? No MIGRATION.70156 67476 Information not available 12/05/2022 What Type Of Diet Are You Following? REGULAR MIGRATION.65731 27423 Information not available 12/05/2022 Which Illicit Or Recreational Drugs Have You Used? None MIGRATION.41677 52528 Information not available 12/05/2022 What Is The Highest Grade Or Level Of School You Have Completed Or The Highest Degree You Have Received? [id number] MIGRATION.26078 59494 Information not available 12/05/2022 Have There Been Any Changes To Your Family Or Social Situation? No MIGRATION.10594 05984 Information not available 12/05/2022 What Is The Fluoride Status Of Your Home? Unknown MIGRATION.25961 02008 Information not available 12/05/2022 When Did You Quit Smoking? 6-10yearssincelast cigarette MIGRATION.36206 42056 Information not available 12/05/2022 Are There Any Guns Present In Your Home? No MIGRATION.68994 46091 Information not available 12/05/2022 Do You Use Insect Repellent Routinely? No MIGRATION.94774 61476 Information not available 12/05/2022 Where Do You Live? [facility] MIGRATION.32797 96233 Information not available 12/05/2022 Do You Have A Medical Power Of Karate Black Belt? Yes MIGRATION.89258 68791 Information not available 12/05/2022 What Was The Date Of Your Most Recent Tobacco Screening? 09/14/2025 [email or web address] Information not available 09/14/2025 Have You Ever Been Counseled For Unhealthy Alcohol Use? No MIGRATION.78310 08766 Information not available 12/05/2022 Do You Have Any Pets? Yes MIGRATION.44522 28659 Information not available 12/05/2022 What Is Your Relationship Status? MIGRATION.45969 91454 Information not available 12/05/2022 Do You Use Your Seat Belt Or Car Seat Routinely? Yes MIGRATION.98668 54662 Information not available 12/05/2022 Do You Have Smoke And Carbon Monoxide Detectors In Your Home? Yes MIGRATION.00034 92465 Information not available 12/05/2022 Are You Passively Exposed To Smoke? No MIGRATION.01836 94106 Information not available 12/05/2022 Are There Any Smokers In Your House? No MIGRATION.63040 38766 Information not available 12/05/2022 How Much Tobacco Do You Smoke? No MIGRATION.17945 22125 Information not available 12/05/2022 What Types Of Sporting Activities Do You Participate In? None MIGRATION.09012 23964 Information not available 12/05/2022 Do You Use Sunscreen Routinely? Yes MIGRATION.57890 46469 Information not available 12/05/2022 Has Tobacco Cessation Counseling Been Provided? No MIGRATION.93905 32504 Information not available 12/05/2022 Have You Recently Traveled Abroad? No MIGRATION.06228 90988 Information not available 12/05/2022 Do You Have Difficulty Walking Or Climbing Stairs? No MIGRATION.12427 18101 Information not available 12/05/2022 Do You Have Any Dietary Restrictions? No MIGRATION.19304 35009 Information not available 12/05/2022 Sex: Male Functional Status Question Answer Note LastModified by [employer] Details LastModified Time Do you use any illicit or recreational drugs? No MIGRATION.971431 0600 Information not available 12/05/2022 Do you or have you ever used any other forms of tobacco or nicotine? No MIGRATION.572594 8536 Information not available 12/05/2022 What is your level of alcohol consumption? Occasional MIGRATION.542981 4580 Information not available 12/05/2022 Do you or have you ever used smokeless tobacco? Never used smokeless tobacco MIGRATION.098978 5139 Information not available 12/05/2022 Do you have transportation difficulties? No MIGRATION.523369 7913 Information not available 12/05/2022 Are you able to walk independently without assistance or assistive devices? YESWOREST MIGRATION.493245 2949 Information not available 12/05/2022 Do you have difficulty doing errands alone? No MIGRATION.666996 4868 Information not available 12/05/2022 Are you able to care for yourself independently? Yes MIGRATION.531328 3676 Information not available 12/05/2022 What is your occupation? retired MIGRATION.883741 2641 Information not available 12/05/2022 Do you have difficulty dressing, bathing, grooming, or toileting? No MIGRATION.653534 7406 Information not available 12/05/2022 Do you or have you ever used e-cigarettes or vape? Never used electronic cigarettes MIGRATION.304759 3890 Information not available 12/05/2022 What is your exercise level? Moderate MIGRATION.701268 1881 Information not available 12/05/2022 Mental Status Question Answer Note LastModified by [employer] Details LastModified Time Do you feel stressed (tense, restless, nervous, or anxious, or unable to sleep at night)? [id number] MIGRATION.41846279 26 Information not available 12/05/2022 Do you have difficulty concentrating, remembering or making decisions? No MIGRATION.07586460 26 Information not available 12/05/2022 Family History Relationship Description Onset Age of this Age Resolved Age Notes LastModified by Organization Details LastModified Time Sister Diabetes mellitus MIGRATION.190 1603646 Not available 12/05/2022 01:00:00 Sister Hypertensive disorder MIGRATION.353 0831961 Not available 12/05/2022 01:00:00 Brother Disease of liver MIGRATION.515 8039779 Not available 12/05/2022 01:00:00 Father Diabetes mellitus MIGRATION.114 7260364 Not available 12/05/2022 01:00:00 Father Heart disease MIGRATION.795 3792464 Not available 12/05/2022 01:00:00 Father Hypertensive disorder MIGRATION.689 8477145 Not available 12/05/2022 01:00:00 Father Carcinoma of prostate MIGRATION.222 8192810 Not available 12/05/2022 01:00:00 Mother Hypertensive disorder MIGRATION.624 8827799 Not available 12/05/2022 01:00:00 Medical History Condition [...] INSOMNIA N HIGH CHOLESTEROL / HYPERLIPIDEMIA Y EYE PROBLEMS N HYPERTHYROIDISM N EDEMA N CHRONIC PAIN SYNDROME N HYPOTHYROIDISM N CAROTID BLOCKAGE Y CONSTIPATION N BACK / NECK PROBLEMS N HAVE YOU BEEN HOSPITALIZED OR SEEN IN TH E ER IN THE PAST YEAR ? N ATHEROSCLEROSIS N BREAST PROBLEMS N DIALYSIS N ECZEMA N OSTEOPOROSIS Y ARTHRITIS Y APPENDICITIS N DIABETES, TYPE Y BAD TEETH N ENT N HEARTBURN / REFLUX N AUTISM SPECTRUM DISORDER (ASD) N HEPATITIS / LIVER DISEASE N GOUT N SLEEP DISORDER Y ALZHEIMER'S DISEASE N Brain Problems N DEMENTIA N HERPES N SEIZURES/EPILEPSY N HEADACHES/MIGRAINES N VASCULAR DISEASE Y PACEMAKER N Blood Disorder N DIZZINESS N HEART DISEASE/HEART PROBLEMS N KIDNEY DISEASE N MULTIPLE SCLEROSIS N CANCER: SPECIFY N CARDIAC ARRHYTHMIA N ATRIAL FIBRILLATION N Gall Stones N PULMONARY EMBOLISM N AUTOIMMUNE DISEASE N Immunizations Vaccine Type Date Status Note Provider Nam e and Address Organization Details Recorded Time Td (adult), 5 Lf tetanus toxoid, preservative free, adsorbed 3 completed Loraine Chaparro RN [facility], [facility] [employer] [facility] 05/10/2023 14:02:00 Past Encounters Encounter ID Performer Location Encounter Start Date Encounter Closed Date Diagnosis/Indication Diagnosis SNOMED-CT Code Diagnosis ICD10 Code Diagnosis IMO Codes Diagnosis Note [id number] Yash Roberto MD [facility] Internal Med [facility] [address] [address] 12/07/2020 00:00:00 12/15/2020 20:44:46 [id number] Yash Roberto MD [facility] Internal Med [facility] [address] [address] 05/26/2021 00:00:00 05/27/2021 16:52:27 [id number] Aneesh Chaudhari MD [facility] Urology [address] [place] [address] 09/05/2021 00:00:00 09/05/2021 15:52:39 [id number] Yash Roberto MD [facility] Internal Med [facility] [address] [address] 09/22/2021 00:00:00 09/23/2021 18:52:56 [id number] Aneesh Chaudhari MD S_[facility] Urology [address] [place] [address] 12/12/2021 00:00:00 12/12/2021 14:58:19 [id number] Yash Roberto MD [facility] Internal Med [facility] [address] [place] [address] 1 04/13/2022 00:00:00 04/13/2022 16:54:29 [id number] Aneesh Chaudhari MD [facility] Urology [address] [place] [address] 1 06/12/2022 00:00:00 06/12/2022 14:31:51 [id number] Yash Roberto MD [facility] Internal Med [facility] 15 [address] [facility] [place] [address] 1 10/15/2022 00:00:00 10/15/2022 15:02:18 [id number] Yash Roberto MD [facility] Internal Med [facility] [address] [facility] [place] [address] 1 02/01/2023 10:45:49 02/01/2023 11:11:29 Dyslipidemia 774617833 E78.5 Type 2 zandra betes mellitus without complication 345313108 E11.9 Benign ess ential hypertension 2988514 I10 Ecchymosis 534494354 R58 [id number] Yash Roberto MD [facility] Internal Med [facility] [address] [facility] [place] [address] 1 05/13/2023 11:10:14 05/13/2023 11:55:04 Type 2 diabetes mellitus without complication 171281389 E11.9 Anxiety 65834558 F41.9 Dyslipidemia 497483446 E 78.5 Benign ess ential hypertension 0046815 I10 Gastroesop hageal reflux disease 965926232 K21.9 [id number] Yash Roberto MD [facility] Internal Med [facility] 15 [address] [facility] [place] [address] 1 06/24/2023 11:13:14 06/24/2023 12:24:04 Dyslipidemia 693516258 E78.5 Anxiety 01475662 F41.9 Benign ess ential hypertension 0446743 I10 Gastroesop hageal reflux disease 640257554 K21.9 Venous stasis 75708265 I 87.8 [id number] Yash Roberto MD [facility] Internal Med [facility] [address]43 [facility], [address] [address] 09/23/2023 11:40:42 09/23/2023 12:33:07 Dyslipidemia 818157815 E78.5 Anxiety 23785224 F41.9 Benign ess ential hypertension 0438748 I10 Benign pro static hyperplasia with outflow obstruction 143675330 N40.1 Type 2 zandra betes mellitus without complication 949671035 E11.9 [id number] [facility] [place] [address] [place] [address] 11/10/2024 14:54:03 11/24/2024 04:07:48 [id number] Santy Torres DPM [facility] Podiatry [address] [address] 03/16/2025 16:33:53 03/18/2025 15:04:16 Type 2 diabetes mellitus 95935567 E11.9 20295413 Patient educated on neuropathy , diabetes, diabetic diet, and daily foot exams. Patient is to check feet daily for new wounds, blisters, redness to prevent infection and ulceration s to the feet. Patient will return to clinic in 3 months for diabetic foot workup. Dystrophia unguium 68432 009 L60.3 1009 Nails 1 through 10 were debrided with sharp mechanical debridemen t without incident. Nails were debrided and greater than 50% length and thickness where needed. [id number] Santy Torres DPM [facility] Podiatry [place] [address] [place] [address] 06/15/2025 16:32:39 06/17/2025 14:52:14 Type 2 diabetes mellitus 24865424 E11.9 27713430 Patient educated on neuropathy , diabetes, diabetic diet, and daily foot exams. Patient is to check feet daily for new wounds, blisters, redness to prevent infection and ulceration s to the feet. Patient will return to clinic in 3 months for diabetic foot workup. Dystrophia unguium 82627 009 L60.3 1009 Nails 1 through 10 were debrided with sharp mechanical debridemen t without incident. Nails were debrided and greater than 50% length and thickness where needed. [id number] Santy Torres DPM [facility] Podiatry [place] [address] [facility] [address] [place] [address] 09/14/2025 14:55:17 09/16/2025 16:05:15 Type 2 diabetes mellitus without complication 480870537 E11.9 Patient educated on neuropathy , diabetes, diabetic diet, and daily foot exams. Patient is to check feet daily for new wounds, blisters, redness to prevent infection and ulceration s to the feet. Patient will return to clinic in 3 months for diabetic foot workup. Dystrophia unguium 01560 009 L60.3 1009 Nails 1 through 10 were debrided with sharp mechanical debridemen t without incident. Nails were debrided and greater than 50% length and thickness where needed. Health Concerns Section Related Observation LastModified by Organization Detai ls LastModified Time None Recorded Concern Status LastModified by Organization Details LastModified Time None Recorded Advance Directives Directive N: Payers Insurance Date Sequence Insurance Name Policy Number Policy Dunham Covered Member ID Dunham Member ID Guarantor Name 09/11/2025 1 [facility] (MEDICARE REPLACEMENT/A DVANTAGE - HMO) [id number] Surendra Mitchell [id number] Surendra Mitchell Notes Date Note Type Note Provider Name and Address Organization Details Recorded Time 09/23/2023 text/html hypertension no headache no dizziness. [...] Advil much better Yash Roberto MD [address] [facility], [facility] [address], [place], [address], [facility] [employer] 09/23/2023 22:01:50 11/10/2024 text/html Pt RTC for routine c/o thick painful ingrown, dystrophic nails jamarcus. Paulo Chamberlain DPM [address] [facility], [facility] [address], [place], [address], [employer] 11/23/2024 09:59:04 03/16/2025 text/html . Patient is a 74-year-old male diabetic he returns for diabetic foot care. Patient denies any open wounds, calf pain, numbness and tingling of the feet. Patient states that his toenails are thickened elongated and needs have them cut. Patient denies any other complaints. Santy Torres DPM [address], [place], [address], [employer] 03/16/2025 17:01:28 06/15/2025 text/html . Patient is a 74-year-old male diabetic who returns for diabetic foot care. Patient overall is doing well denies any numbness tingling or burning in the feet. Patient denies any injury to the foot. Patient has a history of wounds but denies any recent wounds. Patient denies any intermittent claudication walking. Santy Torres DPM [address], [place], [address], [employer] 06/16/2025 13:40:48 09/14/2025 text/html DM/nail trim/ Dr Roberto. Patient is a 75-year-old male who returns the office for diabetic foot care. Patient states overall he is doing well he denies any open wounds or injury of the foot. Patient denies any pain or intermittent claudication. Patient states he would like his nails cut. Santy Torres DPM [address], [place], [address], [employer] 09/15/2025 10:52:33
--- NOTE | 2025-10-01 13:00 | ED.WOUNDLAC ---
HPI - Wound/Laceration General Chief Complaint: Wound/Laceration <Lucie Soto APRN - Last Filed: 10/01/25 13:02> Stated Complaint: finger lac <Lucie Soto APRN - Last Filed: 10/01/25 13:02> Time Seen by Provider: 10/01/25 13:00 <Lucie Soto APRN - Last Filed: 10/01/25 13:02> Focused HPI: Patient is 75-year-old male who presents to the ER after sustaining an injury to his left pinky finger. He reports he was cutting car board boxes with scissors when he slipped and nicked his pinky. Patient endorses a significant amount of bleeding afterwards. He reports he is unsure when he last had a tetanus vaccine. Patient denies any decreased range of motion, acute pain, or decreased movement to the joints. His medical chart indicates a history of high blood pressure, diabetes, and depression. GENERAL: Well-appearing, well-nourished, and in no acute distress. HEAD: Normocephalic, atraumatic. CHEST: Clear to auscultation. ?No respiratory distress. HEART: Regular rate and rhythm.? NEURO: ?Alert and oriented x3. Patient screened in triage and initial orders placed.? ?Additional care and disposition to be based upon?diagnostic testing and treatment. <Lucie Soto APRN - Last Filed: 10/01/25 13:02> Related Data Home Medications: Home Medications ?Medication ?Instructions ?Recorded ?Confirmed ?Last Taken ?Type Prevagen PO 02/23/25 02/23/25 Unknown History alfuzosin 10 mg tablet,extended 10 mg PO DAILY 02/23/25 02/23/25 Unknown History release 24 hr bupropion HCl 150 mg tablet,12 hr 150 mg PO QAM 02/23/25 02/23/25 Unknown History sustained-release (Wellbutrin SR) citalopram 20 mg tablet 20 mg PO DAILY 02/23/25 02/23/25 Unknown History lisinopril 10 mg tablet 10 mg PO DAILY 02/23/25 02/23/25 Unknown History metformin 500 mg tablet 500 mg PO DAILY 02/23/25 02/23/25 Unknown History montelukast 10 mg tablet 10 mg PO DAILY 02/23/25 02/23/25 Unknown History [id number]-fv-[id number] 300 mcg-K 60 1 tablet PO DAILY 02/23/25 02/23/25 Unknown History mcg-lycop 600 mcg-lutein 300 mcg tablet (Centrum Silver Men) pantoprazole 40 mg tablet,delayed 40 mg PO QAM 02/23/25 02/23/25 Unknown History release rosuvastatin 10 mg tablet 10 mg PO DAILY 02/23/25 02/23/25 Unknown History <Lucie Soto APRN - Last Filed: 10/01/25 13:02> Allergies/Adverse Reactions: Allergies Allergy/AdvReac Type Severity Reaction Status Date / Time No Known Allergies Allergy Unverified 02/23/25 07:01 <Lucie Soto APRN - Last Filed: 10/01/25 13:02> Review of Systems Review of Systems: All systems reviewed & are unremarkable except as noted in HPI and below <Lupe Bowers PA-C - Last Filed: 10/01/25 17:53> [facility] Social History Social History: Social History (Updated 02/23/25 @ 07:49 by Tonia Holcomb [facility]) Smoking status: Never smoker Alcohol intake: current Substance use: never Current Housing: Decline to Answer Concerned About Future Housing: Decline to Answer Difficulty Paying Gas/Electric Bills: Decline to Answer Difficulty Paying for Meds: Decline to Answer Currently Unemployed: Decline to Answer Education: Decline to Answer Difficulty w/ Childcare or Family Care: Decline to Answer <Lucie Soto APRN - Last Filed: 10/01/25 13:02> Exam Narrative: GENERAL: Well-appearing, well-nourished, and in no acute distress. HEAD: Normocephalic, atraumatic. EYES: EOMI. EXTREMITIES: Normal range of motion. No edema. Left 5th finger with 1.5 cm linear laceration into subcutaneous tissue SKIN: Warm, dry, no rash. NEURO: No focal deficits. Alert and oriented x3. PSYCH: Normal mood and affect <Lupe Bowers PA-C - Last Filed: 10/01/25 17:53> Course Vital Signs Vital signs: Vital Signs Temperature 97.1 F L 10/01/25 12:39 Pulse Rate 90 10/01/25 12:39 Respiratory Rate 16 12/26/25 12:39 Blood Pressure 170/89 H 10/01/25 12:39 Pulse Oximetry 94 10/01/25 12:39 Temperature 97.1 F L 10/01/25 12:39 Pulse Rate 90 10/01/25 12:39 Respiratory Rate 16 10/01/25 12:39 Blood Pressure 170/89 H 10/01/25 12:39 Pulse Oximetry 94 10/01/25 12:39 <Lucie Soto APRN - Last Filed: 10/01/25 13:02> Vital Signs Temperature 97.1 F L 10/01/25 12:39 Pulse Rate 90 10/01/25 12:39 Respiratory Rate 16 10/01/25 12:39 Blood Pressure 170/89 H 10/01/25 12:39 Pulse Oximetry 94 10/01/25 12:39 Temperature 97.1 F L 10/01/25 12:39 Pulse Rate 90 10/01/25 12:39 Respiratory Rate 16 10/01/25 12:39 Blood Pressure 170/89 H 10/01/25 12:39 Pulse Oximetry 94 10/01/25 12:39 <Lupe Bowers PA-C - Last Filed: 10/01/25 17:53> Procedures Laceration Laceration 1: Date: 10/01/25 <Lupe Bowers PA-C - Last Filed: 10/01/25 17:53> Time: 17:51 <Lupe Bowers PA-C - Last Filed: 10/01/25 17:53> Site: hand <GAEL Venegas Last Filed: 10/01/25 17:53> Side (If applicable): left <GAEL Venegas Last Filed: 10/01/25 17:53> Size (cm): 1.5 <GAEL Venegas Last Filed: 10/01/25 17:53> Description: linear <GAEL Venegas Last Filed: 10/01/25 17:53> Depth: simple, single layer <GAEL Venegas Last Filed: 10/01/25 17:53> Local Anesthetic: lidocaine 1% <GAEL Venegas Last Filed: 10/01/25 17:53> Amount of anesthesia used (mL): 2 <GAEL Venegas Last Filed: 10/01/25 17:53> Pre-repair: wound explored and irrigated <GAEL Venegas Last Filed: 10/01/25 17:53> ====== Skin Level ======: Skin layer closed with: nylon <GAEL Venegas Last Filed: 10/01/25 17:53> Size (cm): 4-0 <GAEL Venegas Last Filed: 10/01/25 17:53> Number of sutures: 2 <GAEL Venegas Last Filed: 10/01/25 17:53> Technique: simple, interrupted <GAEL Venegas Last Filed: 10/01/25 17:53> ====== Subcutaneous Layer ======: ====== Muscle Layer ======: ====== Tendon Layer ======: [facility] Narrative Medical decision making narrative: Patient presents to the emergency department for laceration to the left 5th finger. Irrigated and closed with sutures. Updated on tetanus vaccination. Follow-up with PCP <GAEL Venegas Last Filed: 10/01/25 17:53> Differential Diagnosis Differential Diagnosis: Laceration, abrasion, avulsion of skin <GAEL Venegas Last Filed: 10/01/25 17:53> Imaging Data Radiologist's impression: Left hand x-ray: Findings/impression: No acute abnormality- 1. No radiopaque foreign body. 2. No acute bony abnormality. 3. Chronic fracture proximal fifth metacarpal. 4. Radiocarpal joint space narrowing. <GAEL Venegas Last Filed: 10/01/25 17:53> Critical Care Time Critical Care Time Critical Care Time: No <GAEL Venegas Last Filed: 10/01/25 17:53> Discharge Plan Discharge Clinical Impression: Laceration <Lucie Soto APRN - Last Filed: 10/01/25 13:02> Patient Disposition: Home <Lucie Soto APRN - Last Filed: 10/01/25 13:02> Condition: Stable <Lucie Soto APRN - Last Filed: 10/01/25 13:02> Instructions: Care For Your Stitches (ED), Laceration (ED) <Lucie Soto APRN - Last Filed: 10/01/25 13:02> Additional Instructions: Return to the emergency department if you experience fever, redness or swelling of your wound, abnormal drainage from your wound, or any other symptoms that are concerning to you. Apply antibiotic ointment daily. Do not soak the wound. Clean with mild soap and water daily Follow-up with your primary care doctor for suture removal in 10-14 days. <Lucie Soto APRN - Last Filed: 10/01/25 13:02> Patient Language: Vincentian <Lucie Soto APRN - Last Filed: 10/01/25 13:02> Prescriptions: No Action pantoprazole 40 mg tablet,delayed release (DR/EC) 40 mg PO QAM citalopram 20 mg tablet 20 mg PO DAILY alfuzosin 10 mg tablet extended release 24 hr 10 mg PO DAILY Rx Instructions: administer after the same meal each day metformin 500 mg tablet 500 mg PO DAILY lisinopril 10 mg tablet 10 mg PO DAILY bupropion HCl [Wellbutrin SR] 150 mg tablet sustained-release 12 hr 150 mg PO QAM montelukast 10 mg tablet 10 mg PO DAILY rosuvastatin 10 mg tablet 10 mg PO DAILY Centrum Silver Men [id number] mcg tablet 1 tablet PO DAILY Prevagen PO <Lucie Soto APRN - Last Filed: 10/01/25 13:02> Follow-up/Referrals: Waqar,MD Yash [Primary Care Provider] <Lucie Soto APRN - Last Filed: 10/01/25 13:02>
[2025-10-01] MEDS: TETANUS,DIPHTHERIA,AC PERTUSSIS ADULT (0.5 ML) BOOSTRIX IM (17:27)
[2025-10-01] MEDS: LIDOCAINE 1% LOCAL INJ 10 ML VIAL (17:27)
== END 2025-10-01 18:00 | disposition home or self-care (01) ==
PROVIDERS: Emergency Provider Physician Assistant; PCP Internal Medicine
DX: S61.217A Laceration without foreign body of left little finger without damage to nail, initial encounter (principal); Z23 Encounter for immunization; I10 Essential (primary) hypertension; E11.9 Type 2 diabetes mellitus without complications; F32.A Depression, unspecified; Z79.84 Long term (current) use of oral hypoglycemic drugs; Z79.899 Other long term (current) drug therapy; W27.2XXA Contact with scissors, initial encounter
CPT/HCPCS: 12001; 73130; 90471; 90715; 99283; J2003; J3010